=== PATIENT | male | born 1955 | race Caucasian/White ===

== ENCOUNTER 2021-03-11 13:37 | Outpatient (REF) | payer BC, SELFPAY ==
--- NOTE | ~2021-03-11 | XR_ITS ---
EXAMINATION: XR THORACIC SPINE CLINICAL INFORMATION: Pain COMPARISON: None TECHNIQUE: 3 views of the thoracic spine were obtained. XR/XR thoracic spine 3V FINDINGS/IMPRESSION: No acute fracture or dislocation. Vertebral body heights maintained. Bulky endplate osteophytes present throughout the thoracic spine. Paraspinal soft tissues unremarkable.
== END 2021-03-11 13:38 | disposition home or self-care (01) ==
LOC: HO.HMGCX 13:37
PROVIDERS: PCP Internal Medicine; Visit Provider Internal Medicine
DX: M54.9 Dorsalgia, unspecified (principal)
CPT/HCPCS: 72072

== ENCOUNTER 2021-03-12 06:07 | Outpatient (REF) | payer BC, SELFPAY ==
[2021-03-12 11:34] LABS: Appearance Urine TURBID; Color Urine YELLOW; Glucose Urine UA 100 MG/DL (NEG); Leukocyte Esterase Urine NEG (NEG); Nitrite Urine NEG (NEG); Specific Gravity - Urine 1.025 (1.005-1.025); Urine Blood TRACE (NEG); Urine Ketones NEG (NEG); Urine Protein NEG (NEG-TRACE)
[2021-03-12 11:55] LABS: Amorphous Sediment Urine 3+ /LPF; RBC Urine 0-2 /HPF (0); Squamous Epithelial Cell Urine 1+ /LPF; WBC Urine 0 /HPF (0-4)
[2021-03-12 11:57] LABS: Creatinine Urine 174.91 mg/dL; Microalbum/Creatinine Ratio Ur 29.1 ug/mg cr
[2021-03-12 12:04] LABS: Estimated Average Glucose 278 mg/dL; Hemoglobin A1c % 11.3 %
[2021-03-12 12:16] LABS: Prostate Specific Antigen Scr 0.08 ng/mL (<0.05-4.0)
[2021-03-12 12:24] LABS: Alanine Aminotransferase 14 U/L (0-40); Albumin Level 4.1 g/dL (3.5-5.0); Alkaline Phosphatase 79 U/L (39-117); Anion Gap 13 (12-20); Aspartate Amino Transferase 10 U/L (5-37); Bilirubin Total 0.6 mg/dL (0.0-1.0); Blood Urea Nitrogen 14 mg/dL (9-16); Calcium 9.6 mg/dL (8.4-10.2); Carbon Dioxide 27 mmol/L (22-29); Chloride 103 mmol/L (96-108); Cholesterol 243 mg/dL; Estimated Glomerular Filt Rate > 60; Glucose Fasting 275 mg/dL (60-99); HDL Cholesterol 42 mg/dL; LDL Cholesterol Calculated 168 mg/dl; Potassium 4.4 mmol/L (3.3-5.1); Sodium 139 mmol/L (135-145); Total Protein 6.8 g/dL (6.5-8.0); Triglycerides 169 mg/dL
[2021-03-18 10:51] LABS: Prolactin 330.4 ng/mL (2.0-18.0)
== END 2021-03-12 06:08 | disposition home or self-care (01) ==
LOC: HO.HMGCLDS 06:07
PROVIDERS: Visit Provider Internal Medicine
DX: Z00.00 Encounter for general adult medical examination without abnormal findings (principal); Z12.5 Encounter for screening for malignant neoplasm of prostate; M54.9 Dorsalgia, unspecified; R73.9 Hyperglycemia, unspecified
CPT/HCPCS: 36415; 80053; 80061; 81001; 82043; 83036; 84146; 84153

== ENCOUNTER 2021-03-20 07:33 | Outpatient (RCR) | payer BC, SELFPAY ==
--- NOTE | 2021-03-20 14:22 | MHC.PT.EP ---
[facility] [place] Office [place] Office [place] Office [address] Shanthi Dasilva [address] [phone] F: [phone] F: [phone] F: [phone] F: [phone] Physical Therapy Plan of Care Date of Evaluation: Date of Surgery: n/a Diagnosis: dorsalgia Assessment: Patient is a 66 year old R handed male who presents with s/s consistent with pain dorsalgia. 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 Patient past medical history includes diabetes and obesity. Current impairments include pain, posture, ROM, strength, activity tolerance and functional mobility. Functional limitations include decreased ability to lift, carry, push, pull, sleep, transfer, and work. Patient is motivated with good rehab potential. Skilled PT will address impairments and functional limitations in order to achieve goals. 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 Manual therapy to restore motion and function. Therapeutic exercise to improve strength and flexibility. Neuromuscular re-education for posture and balance. Therapeutic activities to return to functional activities of daily living. Electronically signed by: Ulices Alcaraz, PT Please sign and return to therapist. Thank you for your referral.
--- NOTE | 2021-11-13 08:32 | MHC.PT.DC ---
[facility] [place] Office [place] Office [place] Office [address] Celia Dasilva 140 [facility] [phone] F: [phone] F: [phone] F: [phone] F: [phone] Physical Therapy Discharge Report Diagnosis: dorsalgia Date of Surgery: n/a Date of Evaluation: 03/20/21 Date of Discharge: 04/04/21 Treatments to Date: 1 Cancellations to Date: No Shows to Date: Discharge Status: Patient Elected to Stop Discharge Summary: Pt did not return after Evaluation. Patient is a 66 year old R handed male who presents with s/s consistent with pain dorsalgia. 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 Patient past medical history includes diabetes and obesity. Current impairments include pain, posture, ROM, strength, activity tolerance and functional mobility. Functional limitations include decreased ability to lift, carry, push, pull, sleep, transfer, and work. Patient is motivated with good rehab potential. Skilled PT will address impairments and functional limitations in order to achieve goals. Electronically signed by: Ulices Alcaraz, PT Please sign and return to therapist. Thank you for your referral.
== END 2021-11-13 08:33 | disposition home or self-care (01) ==
LOC: HO.PTCHIC 07:33
PROVIDERS: PCP Internal Medicine; Visit Provider Internal Medicine
DX: M54.9 Dorsalgia, unspecified (principal)
CPT/HCPCS: 97110; 97161

== ENCOUNTER 2021-03-21 14:06 | Outpatient (REF) | payer BC, SELFPAY ==
[2021-03-21 16:28] LABS: Appearance Urine CLEAR; Color Urine YELLOW; Glucose Urine UA NEG (NEG); Leukocyte Esterase Urine NEG (NEG); Nitrite Urine NEG (NEG); PH 5.5 (5.0-8.0); Specific Gravity - Urine >= 1.030 (1.005-1.025); Urine Blood NEG (NEG); Urine Ketones NEG (NEG); Urine Protein NEG (NEG-TRACE)
[2021-03-21 16:37] LABS: Bacteria Urine TRACE /LPF; RBC Urine 0 /HPF (0); Squamous Epithelial Cell Urine 1+ /LPF; WBC Urine 0 /HPF (0-4)
[2021-03-21 16:59] LABS: TSH reflex Free T4 2.08 uIU/mL (0.32-4.0)
== END 2021-03-21 14:07 | disposition home or self-care (01) ==
LOC: HO.HMGCLDS 14:06
PROVIDERS: PCP Internal Medicine; Visit Provider Internal Medicine
DX: Z00.00 Encounter for general adult medical examination without abnormal findings (principal); M54.9 Dorsalgia, unspecified; R79.89 Other specified abnormal findings of blood chemistry; E11.65 Type 2 diabetes mellitus with hyperglycemia
CPT/HCPCS: 36415; 81001; 84443

== ENCOUNTER 2021-03-25 13:51 | Outpatient (REF) | payer MEDICARE, SELFPAY ==
--- NOTE | ~2021-03-25 | MM_ITS ---
EXAMINATION: MM DIAGNOSTIC DIGITAL BREAST TOMOSYNTHESIS, BILATERAL US DIAGNOSTIC ULTRASOUND BREAST, BILATERAL CLINICAL INFORMATION: 66-year-old male with asymmetric breast enlargement greater on right at routine clinical exam. Palpable fullness on right. No discharge. No prior breast imaging. COMPARISON: None (current study represents initial baseline exam). TECHNIQUE: Digital breast tomosynthesis is performed in both the craniocaudal and mediolateral oblique views along with computer-aided detection (CAD). Synthesized 2D images are generated from the tomosynthesis. Ultrasound of both breasts is performed including all 4 quadrants and retroareolar region. Grayscale imaging and color Doppler are performed without and with harmonics. FINDINGS: Mammography: The breasts are heterogeneously dense, which may obscure small masses (ACR BI-RADS breast composition Category c). There is global asymmetry of the breasts, the right is larger. Multiple oval and rounded asymmetries are seen on both sides, the right side asymmetries are larger and slightly higher attenuation. There is no architectural abnormality. The bilateral MLO tomography shows fine uniform stromal pseudo encapsulation around the tissue, likely compressed stroma rather than encapsulation of bilateral global hamartomas. There are diffuse bilateral benign round and rim calcifications scattered throughout both breasts. There is no adenopathy. The skin contours are smooth. Ultrasound: Ultrasound of both breasts have similar sonographic pattern. There is no isolated sonographically lesion different from the remainder of each breast. No focal architectural abnormality. No focal mass with internal color flow to target for tissue sampling. No skin thickening or edema tracking in soft tissue planes. Management: Findings discussed with patient at time of imaging. Patient notes chronic enlarged asymmetric breast, right larger for several decades. He does not note any palpable changes in the breasts. There is no discharge. No prior history of anterior chest wall trauma. MM/MM tomosynthesis diagnostic BI IMPRESSION: -Unusual mammographic pattern, possibly prominent asymmetric bilateral gynecomastia. Bilateral hamartoma less likely. -Ultrasound appearance is bilaterally similar. No focal abnormality to assist in targeting for focal tissue sampling. ASSESSMENT: BI-RADS 3: Probably Benign RECOMMENDATION: Patient should be managed based on the clinical impression and clinical follow-up as warranted. If clinically indicated, further evaluation may be considered with surgical consult. Decision to proceed with biopsy should be based on clinical grounds and degree of clinical concern.
== END 2021-03-25 13:52 | disposition home or self-care (01) ==
LOC: HO.MAMMO 13:51
PROVIDERS: PCP Internal Medicine; Visit Provider Internal Medicine
DX: N63.25 Unspecified lump in the left breast, overlapping quadrants (principal); N63.15 Unspecified lump in the right breast, overlapping quadrants
CPT/HCPCS: 76642; 77062; 77066

== ENCOUNTER 2021-04-15 14:44 | Outpatient (REF) | payer BC, SELFPAY ==
--- NOTE | ~2021-04-15 | MR_ITS ---
EXAMINATION: MR BRAIN WITHOUT AND WITH CONTRAST CLINICAL INFORMATION: Evaluate prolactinoma. COMPARISON: There are no prior studies available for comparison at time of dictation. TECHNIQUE: Multiplanar, multisequence MRI of the brain was obtained before and after the intravenous administration of 5 mL Gadavist. FINDINGS: There is a relatively well-defined heterogeneously enhancing mass in the central and right aspect of the anterior lobe of the pituitary gland which measures 1.3 x 1.2 x 0.9 cm in oblique AP, transverse and craniocaudal dimensions. The superior aspect of the right lobe is convex. The infundibulum is displaced toward the left. There is no impingement on the optic chiasm. The lesion extends between loops of the right cavernous internal carotid arteries, but the vessels are patent and there is normal enhancement of the cavernous sinuses. No diffusion abnormalities are identified to suggest an acute or subacute infarct. There is mild commensurate prominence of the ventricles and sulci consistent with diffuse volume loss. There is a moderate cavum septum pellucidum and vergae. No mass effect or midline shift is seen. There are scattered foci of hyperintense T2 and FLAIR signal in the periventricular and subcortical white matter, most consistent with chronic microvascular ischemic changes. No extra-axial fluid collections are noted. The brainstem and cerebellum are normal. On postcontrast imaging, there is no abnormal parenchymal or leptomeningeal enhancement. The craniovertebral junction, marrow signal, and midline structures are normal. There is a proteinaceous Tornwaldt cyst in the superior nasopharynx posteriorly. The mastoid air cells and paranasal sinuses are well-aerated. MR/MR head/brain wo/w con IMPRESSION: 1. There is well-defined heterogenous the enhancing mass in the central right aspect of the anterior lobe of the pituitary gland, consistent with pituitary adenoma. No prior studies available for comparison. If they become available, comparison can be made to assess for any interval changes. The lesion extends between loops of the cavernous internal carotid artery on the right, but the vascular flow voids are maintained. 2. There are no acute bleeds or infarcts. There are no other masses or areas of abnormal enhancement.
--- NOTE | ~2021-04-15 | XR_ITS ---
EXAMINATION: PRE-MRI ORBITS CLINICAL INFORMATION: Rule out metal devise COMPARISON: None TECHNIQUE: 3 views FINDINGS: There is no radiopaque metallic foreign body seen in the orbits. There are several dental fillings visualized. The paranasal and mastoid cells are well-aerated. The maxillofacial and nasal bones are intact. XR/XR pre mri screening IMPRESSION: No radiopaque metallic foreign body seen in the orbits.
== END 2021-04-15 14:45 | disposition home or self-care (01) ==
LOC: HO.MRI 14:44
PROVIDERS: Visit Provider Internal Medicine
DX: D35.2 Benign neoplasm of pituitary gland (principal)
CPT/HCPCS: 70553; A9585

== ENCOUNTER → 2021-06-24 13:49 | Outpatient (BNVA) | payer BC, SELFPAY | PROVIDERS: PCP Internal Medicine; Visit Provider Internal Medicine Endocrinology, Diabetes & Metabolism | DX: Z13.89 Encounter for screening for other disorder (principal) ==

== ENCOUNTER 2021-06-25 06:56 | Outpatient (REF) | payer BC, SELFPAY ==
[2021-06-25 11:37] LABS: Estimated Average Glucose 154 mg/dL
[2021-06-25 11:46] LABS: Creatinine Urine 114.82 mg/dL; Microalbum/Creatinine Ratio Ur 8.7 ug/mg cr
[2021-06-25 11:53] LABS: Free T4 (Free Thyroxine) 1.12 ng/dL (0.71-1.85)
[2021-06-25 11:56] LABS: Alanine Aminotransferase 13 U/L (0-40); Albumin Level 4.5 g/dL (3.5-5.0); Alkaline Phosphatase 69 U/L (39-117); Anion Gap 14 (12-20); Aspartate Amino Transferase 11 U/L (5-37); Bilirubin Total 0.5 mg/dL (0.0-1.0); Blood Urea Nitrogen 21 mg/dL (9-16); Calcium 9.9 mg/dL (8.4-10.2); Carbon Dioxide 25 mmol/L (22-29); Chloride 103 mmol/L (96-108); Cholesterol 175 mg/dL; Estimated Glomerular Filt Rate > 60; Glucose Fasting 158 mg/dL (60-99); HDL Cholesterol 50 mg/dL; LDL Cholesterol Calculated 109 mg/dl; Potassium 4.6 mmol/L (3.3-5.1); Sodium 137 mmol/L (135-145); Thyroid Stimulating Hormone 2.75 uIU/mL (0.32-4.0); Total Protein 7.2 g/dL (6.5-8.0); Triglycerides 83 mg/dL
[2021-06-25 11:59] LABS: Cortisol Random 13.1 ug/dL
[2021-06-27 05:40] LABS: Follicle Stimulating Hormone <0.7 mIU/mL (1.6-8.0); Lutenizing Hormone <0.2 mIU/mL (1.6-15.2)
[2021-06-30 16:12] LABS: IGF-1 (Somatomedin C) 84 ng/mL (41-279); IGF-1 Z Score (Male) -0.7 SD (-2.0 - +2.0)
[2021-07-01 18:12] LABS: Testosterone, Free 3.1 pg/mL (35.0-155.0); Testosterone, Total 36 ng/dL (250-1100)
== END 2021-06-25 06:57 | disposition home or self-care (01) ==
LOC: HO.HMGCLDS 06:56
PROVIDERS: PCP Internal Medicine; Visit Provider Internal Medicine Endocrinology, Diabetes & Metabolism
DX: D35.2 Benign neoplasm of pituitary gland (principal); E11.9 Type 2 diabetes mellitus without complications; E78.5 Hyperlipidemia, unspecified
CPT/HCPCS: 36415; 80053; 80061; 82043; 82533; 83001; 83002; 83036; 84305; 84402; 84403; 84439; 84443

== ENCOUNTER 2021-06-30 08:14 | Outpatient (REF) | payer BC, SELFPAY ==
[2021-06-30 11:58] LABS: Creatinine, mg/dL 93.05
[2021-06-30 13:13] LABS: Creatinine, 24Hr Urine 1.5 G/Day (1.0-2.0); Total Volume 24 Hour Urine 1600 mL
[2021-07-04 21:56] LABS: Cortisol Free, 24 Hr Urine 32.1 mcg/24 h (4.0-50.0); Creatinine, 24 Hr Urine 1.45 g/24 h (0.50-2.15); Total Volume, 24 Hr Urine 1600 mL
== END 2021-06-30 08:15 | disposition home or self-care (01) ==
LOC: HO.HMGCLNP 08:14
PROVIDERS: Visit Provider Internal Medicine Endocrinology, Diabetes & Metabolism
DX: D35.2 Benign neoplasm of pituitary gland (principal)
CPT/HCPCS: 82530; 82570

== ENCOUNTER 2021-10-24 06:14 | Outpatient (REF) | payer BC, SELFPAY ==
[2021-10-24 11:52] LABS: Alanine Aminotransferase 16 U/L (0-40); Albumin Level 4.1 g/dL (3.5-5.0); Alkaline Phosphatase 64 U/L (39-117); Aspartate Amino Transferase 12 U/L (5-37); Bilirubin Direct < 0.2 mg/dL (0.0-0.5); Bilirubin Total 0.4 mg/dL (0.0-1.0); Total Protein 6.6 g/dL (6.5-8.0)
[2021-10-26 10:07] LABS: Prolactin 62.8 ng/mL (2.0-18.0)
== END 2021-10-24 06:15 | disposition home or self-care (01) ==
LOC: HO.HMGCLDS 06:14
PROVIDERS: PCP Internal Medicine; Visit Provider Internal Medicine Endocrinology, Diabetes & Metabolism
DX: D35.2 Benign neoplasm of pituitary gland (principal)
CPT/HCPCS: 36415; 80076; 84146

== ENCOUNTER 2021-12-29 13:56 | Outpatient (REF) | payer BC, SELFPAY ==
--- NOTE | ~2021-12-29 | XR_ITS ---
EXAMINATION: PRE-MRI ORBIT CLINICAL INFORMATION: Screening for MRI COMPARISON: 04/15/2021 TECHNIQUE: 3 views FINDINGS: No radiopaque foreign body overlying the orbits. Visualized paranasal sinuses clear. Nasal septum midline. No fracture or destructive process. XR/XR pre mri screening IMPRESSION: Unremarkable exam. No radiopaque metallic foreign body seen overlying or within the orbits.
--- NOTE | ~2021-12-29 | MR_ITS ---
EXAMINATION: MR BRAIN WITHOUT AND WITH CONTRAST CLINICAL INFORMATION: Prolactinoma follow-up. COMPARISON: Brain MRI 04/15/2021. TECHNIQUE: Multiplanar MR imaging of the brain was performed without and with contrast. A total of 5 mL Gadavist was utilized for this examination. FINDINGS: Again there is a heterogeneously enhancing intrasellar mass located along the right lateral aspect of the sella turcica causing expansion and remodeling of the floor the sella turcica, right cavernous sinus invasion, and leftward displacement of the pituitary stalk. The overall height of the mass measures 1.1 cm and the superior surface of the pituitary gland has a subtle upward convex curvature. No suprasellar mass effect and no overt chiasmatic compression. Cavernous internal carotid artery flow voids are maintained. Postcontrast images reveal no abnormal intracranial mass or enhancement. There is no intracranial mass effect or midline shift. Lateral and third ventricles are normal. No hydrocephalus. Midline structures including the cervicomedullary junction are normal. No acute bone marrow signal changes. There is no acute territorial infarct. Intracranial vascular flow voids are grossly maintained. There is no mastoid or middle ear effusion. Mild paranasal sinus mucosal thickening within ethmoid air cells. MR/MR head/brain wo/w con IMPRESSION: Stable examination. 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
== END 2021-12-29 13:57 | disposition home or self-care (01) ==
LOC: HO.MRI 13:56
PROVIDERS: Visit Provider Internal Medicine Endocrinology, Diabetes & Metabolism
DX: D35.2 Benign neoplasm of pituitary gland (principal)
CPT/HCPCS: 70553; A9585

== ENCOUNTER 2022-01-08 06:07 | Outpatient (REF) | payer BC, SELFPAY ==
[2022-01-08 11:37] LABS: Alanine Aminotransferase 18 U/L (0-40); Albumin Level 4.4 g/dL (3.5-5.0); Alkaline Phosphatase 71 U/L (39-117); Aspartate Amino Transferase 13 U/L (5-37); Bilirubin Direct 0.2 mg/dL (0.0-0.5); Bilirubin Total 0.5 mg/dL (0.0-1.0)
[2022-01-10 09:26] LABS: Prolactin 39.1 ng/mL (2.0-18.0)
[2022-01-20 20:27] LABS: Testosterone, Free 4.7 pg/mL (35.0-155.0); Testosterone, Total 61 ng/dL (250-1100)
== END 2022-01-08 06:08 | disposition home or self-care (01) ==
LOC: HO.HMGCLDS 06:07
PROVIDERS: PCP Internal Medicine; Visit Provider Internal Medicine Endocrinology, Diabetes & Metabolism
DX: D35.2 Benign neoplasm of pituitary gland (principal)
CPT/HCPCS: 36415; 80076; 84146; 84402; 84403

== ENCOUNTER 2022-02-26 12:21 | Outpatient (REF) | payer BC, SELFPAY ==
[2022-02-26 14:22] LABS: Alanine Aminotransferase 16 U/L (0-40); Albumin Level 4.2 g/dL (3.5-5.0); Alkaline Phosphatase 67 U/L (39-117); Aspartate Amino Transferase 13 U/L (5-37); Bilirubin Direct < 0.2 mg/dL (0.0-0.5); Bilirubin Total 0.3 mg/dL (0.0-1.0); Total Protein 6.8 g/dL (6.5-8.0)
[2022-02-27 17:13] LABS: Prolactin 25.9 ng/mL (2.0-18.0)
== END 2022-02-26 12:22 | disposition home or self-care (01) ==
LOC: HO.HMGCLDS 12:21
PROVIDERS: PCP Internal Medicine; Visit Provider Internal Medicine Endocrinology, Diabetes & Metabolism
DX: D35.2 Benign neoplasm of pituitary gland (principal)
CPT/HCPCS: 36415; 80076; 84146

== ENCOUNTER 2022-03-16 06:02 | Outpatient (REF) | payer BC, SELFPAY ==
[2022-03-16 11:37] LABS: MANUAL DIFF FLAG NO
[2022-03-16 11:55] LABS: Basophils Percent Auto 0.4 % (0-2); Eosinophils Absolute Auto 0.3 X10*3/uL (0.0-0.4); Eosinophils Percent Auto 2.8 % (0-4); Hemoglobin 13.9 g/dl (14.0-18.0); Imm Gran Abs Auto 0.04 X10*3/uL (0.00-0.03); Imm Gran Pct Auto 0.4 % (0.0-0.4); Lymphocytes Absolute Auto 2.8 X10*3/uL (1.2-4.9); Lymphocytes Percent Auto 29.1 % (20-40); Mean Corpuscular HGB Conc 33.1 g/dl (31.0-36.0); Mean Corpuscular Hemoglobin 28.4 pg (27.0-33.0); Mean Corpuscular Volume 85.9 fL (80.0-98.0); Mean Platelet Volume 11.1 fL (9.4-12.4); Monocytes Absolute Auto 0.8 X10*3/uL (0.1-1.2); Monocytes Percent Auto 8.3 % (2-11); Neutrophils Absolute Auto 5.7 x10*3/uL (2.0-8.3); Platelet Count 262 X10*3/uL (160-400); Red Blood Count 4.89 X10*6/uL (4.60-5.80); Red Cell Distribution Width 13.2 % (11.0-16.0); White Blood Count 9.6 X10*3/uL (4.8-10.8)
[2022-03-16 12:53] LABS: Estimated Average Glucose 146 mg/dL; Hemoglobin A1c % 6.7 %
[2022-03-16 14:00] LABS: Alanine Aminotransferase 14 U/L (0-40); Albumin Level 4.1 g/dL (3.5-5.0); Alkaline Phosphatase 75 U/L (39-117); Anion Gap 13 (12-20); Aspartate Amino Transferase 13 U/L (5-37); Bilirubin Total 0.4 mg/dL (0.0-1.0); Blood Urea Nitrogen 18 mg/dL (9-16); Calcium 9.6 mg/dL (8.4-10.2); Carbon Dioxide 28 mmol/L (22-29); Chloride 104 mmol/L (96-108); Cholesterol 186 mg/dL; Estimated Glomerular Filt Rate > 60; Glucose Fasting 152 mg/dL (60-99); HDL Cholesterol 48 mg/dL; LDL Cholesterol Calculated 116 mg/dl; Potassium 4.6 mmol/L (3.3-5.1); Sodium 140 mmol/L (135-145); Total Protein 6.6 g/dL (6.5-8.0); Triglycerides 110 mg/dL
== END 2022-03-16 06:03 | disposition home or self-care (01) ==
LOC: HO.HMGCLDS 06:02
PROVIDERS: Absent Provider Internal Medicine Endocrinology, Diabetes & Metabolism; PCP Internal Medicine; Visit Provider Internal Medicine
DX: Z00.00 Encounter for general adult medical examination without abnormal findings (principal); Z12.5 Encounter for screening for malignant neoplasm of prostate; E78.5 Hyperlipidemia, unspecified; E11.65 Type 2 diabetes mellitus with hyperglycemia
CPT/HCPCS: 36415; 80053; 80061; 83036; 84153; 85025

== ENCOUNTER 2022-03-19 15:19 | Outpatient (REF) | payer BC, SELFPAY ==
--- NOTE | ~2022-03-19 | XR_ITS ---
EXAMINATION: XR KNEE AP STANDING, BILATERAL CLINICAL INFORMATION: Pain. COMPARISON: None TECHNIQUE: AP bilateral standing and lateral views of the knees was obtained. FINDINGS: RIGHT KNEE: Bony mineralization is normal. The lateral joint space compartment is well-maintained. There is moderately severe narrowing of the medial and patellofemoral joint space compartments. There is tricompartment peripheral osteophyte formation. There is a mild varus configuration. No fracture or dislocation is seen. There is a small joint effusion. No foreign body is noted. There are atherosclerotic calcifications. XR/XR knee standing BI IMPRESSION: 1. There is tricompartment osteoarthritic change of the right knee, most pronounced in the medial and patellofemoral joint space compartments, where it is moderately severe. 2. There is a mild varus configuration. 3. There is a small joint effusion. LEFT KNEE: Bony mineralization is normal. The lateral joint space compartment is well-maintained. There is moderately severe narrowing of the medial and patellofemoral joint space compartments. There is tricompartment peripheral osteophyte formation. No fracture or dislocation is seen. There is no significant joint effusion. No foreign body is noted. There are atherosclerotic calcifications. IMPRESSION: 1. There is tricompartment osteoarthritic change of the right knee, most pronounced of the medial and patellofemoral joint space compartments, where it is moderately severe. 2. There is a mild varus configuration.
== END 2022-03-19 15:20 | disposition home or self-care (01) ==
LOC: HO.HMGCX 15:19
PROVIDERS: PCP Internal Medicine; Visit Provider Internal Medicine
DX: M25.562 Pain in left knee (principal); M25.561 Pain in right knee
CPT/HCPCS: 73565

== ENCOUNTER 2022-03-25 06:05 | Outpatient (REF) | payer BC, SELFPAY ==
[2022-03-26 22:13] LABS: Prolactin 25.7 ng/mL (2.0-18.0)
== END 2022-03-25 06:06 | disposition home or self-care (01) ==
LOC: HO.HMGCLDS 06:05
PROVIDERS: PCP Internal Medicine; Visit Provider Internal Medicine Endocrinology, Diabetes & Metabolism
DX: D35.2 Benign neoplasm of pituitary gland (principal)
CPT/HCPCS: 36415; 84146

== ENCOUNTER 2022-06-29 06:07 | Outpatient (REF) | payer BC, SELFPAY ==
[2022-06-29 12:14] LABS: Alanine Aminotransferase 25 U/L (0-40); Albumin Level 4.1 g/dL (3.5-5.0); Alkaline Phosphatase 68 U/L (39-117); Aspartate Amino Transferase 14 U/L (5-37); Bilirubin Direct 0.1 mg/dL (0.0-0.5); Bilirubin Total 0.4 mg/dL (0.0-1.0); Total Protein 6.4 g/dL (6.5-8.0)
[2022-07-01 00:53] LABS: Prolactin 9.4 ng/mL (2.0-18.0)
== END 2022-06-29 06:08 | disposition home or self-care (01) ==
LOC: HO.HMGCLDS 06:07
PROVIDERS: PCP Internal Medicine; Visit Provider Internal Medicine Endocrinology, Diabetes & Metabolism
DX: D35.2 Benign neoplasm of pituitary gland (principal)
CPT/HCPCS: 36415; 80076; 84146

== ENCOUNTER → 2022-07-02 08:36 | Outpatient (BNVA) | payer BC, SELFPAY | PROVIDERS: PCP Internal Medicine; Visit Provider Internal Medicine Endocrinology, Diabetes & Metabolism ==

== ENCOUNTER 2022-09-07 11:49 | Outpatient (AMB) | payer BC, SELFPAY ==
--- NOTE | 2022-09-07 12:07 | A.OFFPC_ITS ---
Vital Signs 09/07/22 12:09 Height 5 ft 10 in Weight 280 lb BMI 40.2 BP 130/74 Blood Pressure Location Rt brachial Position Sitting Pulse 50 Pulse Source Pulse Oximeter Pulse Oximetry (%) 96 Oxygen Delivery Method Room Air Intake Visit Reasons: 6 month f/u DM Intake Note: pt is here to follow up on his DM Allergies gabapentin Adverse Reaction (Intermediate, Verified 09/07/22 12:12) Agitated Tobacco use date assessed: 09/07/22 Fall risk assessment: No Falls in past year Last assessed Fall Risk: 09/07/22 Dental Screening Dental Screen Date: 09/07/22 Did you have a dental visit in the last 12 months?: No Did you have a dental problem in the last 6 months where you did not have access to dental care?: No Was dental information given to patient?: Patient has dentist [facility] Medical History (Updated 03/18/22 @ 13:02 by Tawny Rodas MD) Annual physical exam Anxiety Back pain DM type 2 (diabetes mellitus, type 2) Hyperglycemia Hyperlipidemia Left breast lump Lump of right breast Overweight Pathologic high serum prolactin Prolactinoma Tobacco dependence Surgical History Hx of tooth extraction Family History Father Diabetes Hypertension Mother Hypertension Breast cancer Maternal Uncle Lung cancer Sister Mental health disorder Diabetes Social History Housing: House Alcohol intake: current Alcohol intake frequency: a few times a week Alcohol type: beer Patient Tobacco Use Status: Current everyday Tobacco user Tobacco use type: Cigarette Cigarettes Per Day: 20 e-Cigarette/Vaping Use: Never Used Current occupational status: employed Cognitive needs: No Hearing needs: No Vision needs: No Questionnaire Thrive Questionnaire Date Thrive assessed: 03/18/22 ALCIRA-7 AMB Questionnaire ALCIRA-7 Date ALCIRA - 7 assessed: 03/18/22 Source: Developed by Drs. Kevin Hutchins, Antonia Woodall, Miguel Angel Phelps and colleagues, with an educational wili from [employer]. Physical exam (Primary Care) Vital Signs: Last Vital Signs Pulse 50 09/07/22 12:09 BP 130/74 09/07/22 12:09 Pulse Ox 96 09/07/22 12:09 Oxygen Delivery Method Room Air 09/07/22 12:09 BMI result Body Mass Index 40.2 Tobacco/Smoking Status: Tobacco use Status Tobacco use date assessed 09/07/22 09/07/22 12:15 Patient Tobacco Use Status Current everyday Tobacco 09/07/22 12:07 Tobacco use type Cigarette 09/07/22 12:07 e-Cigarette/Vaping Use Never Used 09/07/22 12:07 Thrive Assessment: Date of Thrive Assessment Date Thrive assessed 03/18/22 09/07/22 12:07 Results AMB Hemoglobin A1c AMB Hemoglobin A1c 6.5 % Last Edit by Becky Cervantes CMA on 09/07/22 12: 29 Results Reviewed Results Reviewed: Laboratory Last Values Hgb A1c (Clinic) 6.5 % (4.0-6.0) H 09/07/22 12:28 Assessment and Plan Assessment & Plan Orders: Orders AMB Hemoglobin A1c Today E11.9 - Type 2 diabetes mellitus without complications Coding Diagnoses
[2022-09-07 12:09] VITALS: BP 130/74; PULSE 50; O2SAT 96; BMI 40.2
== END 2022-09-07 13:25 | disposition left against medical advice (07) ==
PROVIDERS: Visit Provider Internal Medicine
DX: E11.9 Type 2 diabetes mellitus without complications (principal)
CPT/HCPCS: 83036

== ENCOUNTER 2022-09-29 08:07 | Outpatient (REF) | payer BC, SELFPAY ==
--- NOTE | ~2022-09-29 | MR_ITS ---
EXAMINATION: MR BRAIN WITHOUT AND WITH CONTRAST CLINICAL INFORMATION: Pituitary macroadenoma, on Cabergoline COMPARISON: MRI of the brain with and without contrast 12/29/2021 TECHNIQUE: Multiplanar multisequence MR imaging of the brain was obtained without and following the administration of 5 mL Gadavist intravenous contrast. FINDINGS: Stable size of a hypoenhancing mass involving the right aspect of the pituitary gland measuring up to 1.1 cm in craniocaudal extent with possible invasion of the right cavernous sinus. Unchanged slight leftward deviation of the pituitary infundibulum. There is mild superior convexity of the right aspect of the gland without suprasellar mass effect. Normal position of the optic chiasm. There is no acute infarct on diffusion-weighted imaging. No extra-axial collection or mass effect/herniation. Scattered periventricular and deep white matter T2 FLAIR hyperintensities consistent with mild underlying microangiopathy. No hydrocephalus. The ventricles are normal in morphology and size. Cavum septum pellucidum et vergae No abnormal parenchymal or extra-axial enhancement. The major flow voids at the skull base are preserved. The midline structures are normal. The cerebellar tonsils are normally positioned. The craniocervical junction is normal. Marrow signal is within normal limits. The visualized soft tissues are without significant abnormality. No signal abnormality within the paranasal sinuses or within the mastoid air cells. MR/MR head/brain wo/w con IMPRESSION: Stable size and appearance of a presumed macroadenoma involving the right aspect of the pituitary gland with possible invasion of the right cavernous sinus. No suprasellar mass effect.
--- NOTE | ~2022-09-29 | XR_ITS ---
Clinical History: pre-MRI screening. Roland and lateral views of the orbits were obtained. The bony orbits are intact. No radiopaque foreign body is seen. The paranasal sinuses are clear. No other osseous abnormalities are identified. XR/XR pre mri screening Impression: Unremarkable orbits. No radiopaque foreign body seen.
== END 2022-09-29 08:08 | disposition home or self-care (01) ==
LOC: HO.MRI 08:07
PROVIDERS: PCP Internal Medicine; Visit Provider Internal Medicine Endocrinology, Diabetes & Metabolism
DX: D35.2 Benign neoplasm of pituitary gland (principal)
CPT/HCPCS: 70553; A9585

== ENCOUNTER 2022-10-21 06:21 | Outpatient (REF) | payer BC, SELFPAY ==
[2022-10-21 11:43] LABS: MANUAL DIFF FLAG NO
[2022-10-21 11:50] LABS: Basophils Absolute Auto 0.1 X10*3/uL (0.0-0.2); Basophils Percent Auto 0.4 % (0-2); Eosinophils Absolute Auto 0.4 X10*3/uL (0.0-0.4); Eosinophils Percent Auto 3.6 % (0-4); Hematocrit 39.9 % (42.0-52.0); Hemoglobin 12.9 g/dl (14.0-18.0); Imm Gran Abs Auto 0.05 X10*3/uL (0.00-0.03); Imm Gran Pct Auto 0.4 % (0.0-0.4); Lymphocytes Absolute Auto 3.2 X10*3/uL (1.2-4.9); Lymphocytes Percent Auto 28.3 % (20-40); Mean Corpuscular HGB Conc 32.3 g/dl (31.0-36.0); Mean Corpuscular Hemoglobin 28.5 pg (27.0-33.0); Mean Corpuscular Volume 88.3 fL (80.0-98.0); Monocytes Absolute Auto 0.9 X10*3/uL (0.1-1.2); Monocytes Percent Auto 8.2 % (2-11); Neutrophils Absolute Auto 6.6 x10*3/uL (2.0-8.3); Neutrophils Percent Auto 59.1 % (45-73); Platelet Count 262 X10*3/uL (160-400); Red Blood Count 4.52 X10*6/uL (4.60-5.80); Red Cell Distribution Width 13.5 % (11.0-16.0); White Blood Count 11.2 X10*3/uL (4.8-10.8)
[2022-10-21 11:59] LABS: Estimated Average Glucose 134 mg/dL; Hemoglobin A1c % 6.3 % (<6.0)
[2022-10-21 12:19] LABS: Alanine Aminotransferase 18 U/L (0-40); Albumin Level 4.2 g/dL (3.5-5.0); Alkaline Phosphatase 68 U/L (39-117); Anion Gap 14 (12-20); Aspartate Amino Transferase 15 U/L (5-37); Bilirubin Direct 0.1 mg/dL (0.0-0.5); Bilirubin Total 0.3 mg/dL (0.0-1.0); Blood Urea Nitrogen 25 mg/dL (9-16); Calcium 9.8 mg/dL (8.4-10.2); Carbon Dioxide 25 mmol/L (22-29); Chloride 107 mmol/L (96-108); Cholesterol 176 mg/dL (<200); Estimated Glomerular Filt Rate > 60; Glucose Fasting 126 mg/dL (60-99); HDL Cholesterol 46 mg/dL (>40); LDL Cholesterol Calculated 102 mg/dL (<100); Potassium 4.4 mmol/L (3.3-5.1); Sodium 142 mmol/L (135-145); Triglycerides 142 mg/dL (<150)
[2022-10-21 12:29] LABS: Creatinine Urine 102.73 mg/dL; Microalbum/Creatinine Ratio Ur 10.7 ug/mg cr (<30)
[2022-10-22 09:09] LABS: Prolactin 8.7 ng/mL (2.0-18.0)
[2022-10-27 16:09] LABS: Testosterone, Free 6.2 pg/mL (35.0-155.0); Testosterone, Total 70 ng/dL (250-1100)
== END 2022-10-21 06:22 | disposition home or self-care (01) ==
LOC: HO.HMGCLDS 06:21
PROVIDERS: Absent Provider Internal Medicine Endocrinology, Diabetes & Metabolism; PCP Internal Medicine; Visit Provider Internal Medicine
DX: Z00.00 Encounter for general adult medical examination without abnormal findings (principal); E11.9 Type 2 diabetes mellitus without complications; D35.2 Benign neoplasm of pituitary gland; E78.5 Hyperlipidemia, unspecified
CPT/HCPCS: 36415; 80053; 80061; 80076; 82043; 82248; 83036; 84146; 84402; 84403; 85025

== ENCOUNTER 2022-10-27 08:06 | Outpatient (AMB) | payer BC, SELFPAY ==
[2022-10-27 08:09] VITALS: BP 146/86; PULSE 64; BMI 39.9
--- NOTE | 2022-10-27 08:09 | A.OFFVIS_ITS ---
Intake Vital Signs 10/27/22 08:09 Height 5 ft 10 in Weight 277 lb 12.519 oz BMI 39.9 BP 146/86 H Blood Pressure Location Lt brachial Position Sitting Pulse 64 Pulse Source Pulse Oximeter Intake Visit Reasons: f/u pituitary macroadenoma/ Confirmed Intake Note: Patient present today for Pituitary Macroadenoma follow up visit. 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 Accompanied by: Self / Same As Patient Allergies gabapentin Adverse Reaction (Intermediate, Verified 10/27/22 08:15) Agitated Medication List - Last Reconciled 10/27/22 by Kevin Portillo MD cabergoline 0.25 mg (1/2 x 0.5 mg) PO 2XW ibuprofen 800 mg PO BID 30 days lancets (SolaveiTouch Delica Lancets) Test blood sugars 2-3 times per day metformin 850 mg PO BID OneTouch Verio test strips (blood sugar diagnostic) Test blood sugar 2-3 times per day NS pravastatin 40 mg PO DAILY HPI HPI Comments History of Present Illness Details This 67-year-old white male sent endocrinology for evaluation of pituitary macroadenoma. Prior workup showed elevated prolactin. In 02/2021 , nipples were tender . Had maamogram which showed breasts but no cancer . No breast D/C . He denies any symptoms of acromegaly or [place] syndrome. 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 He denies any loss of vision or increased headaches. He denies any breast discharge. Workup for hypersecretion and hyposecretion of pituitary axis was nl He started cabergoline 0.5 mg2 X/wk with normalization of prolactin Energy better. He did see Dr. yeboah at [facility] who advised that he continue medical therapy. MRI the pituitary shows the adenoma has been stable. Patient does have a history of chronic nosebleeds but states recently has had several nosebleeds. These were bloody in nature did not contain clear fluid. Recent MRI showed stability in the size of the adenoma with possible invasion of the cavernous sinus but no effect on the optic chiasm [facility] Medical History (Updated 03/18/22 @ 13:02 by Tawny Rodas MD) Annual physical exam Anxiety Back pain DM type 2 (diabetes mellitus, type 2) Hyperglycemia Hyperlipidemia Left breast lump Lump of right breast Overweight Pathologic high serum prolactin Prolactinoma Tobacco dependence Surgical History Hx of tooth extraction Family History Father Diabetes Hypertension Mother Hypertension Breast cancer Maternal Uncle Lung cancer Sister Mental health disorder Diabetes Social History Housing: House Alcohol intake: current Alcohol intake frequency: a few times a week Alcohol type: beer Patient Tobacco Use Status: Current everyday Tobacco user Tobacco use type: Cigarette Cigarettes Per Day: 20 e-Cigarette/Vaping Use: Never Used Current occupational status: employed Cognitive needs: No Hearing needs: No Vision needs: No Physical Exam Vital Signs: Last Vital Signs Pulse 64 10/27/22 08:09 BP 146/86 H 10/27/22 08:09 BMI result Body Mass Index 39.9 Const Other: No visual field loss by gross confrontation Assessment & Plan Assessment & Plan (1) Prolactinoma: Code(s): D35.2 - Benign neoplasm of pituitary gland Plan: This is a 67-year-old white male with a 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 The plan is to decrease the cabergoline to 0.25 mg twice weekly. Will recheck prolactin fasting,, liver panel in 6 weeks time. . If his testosterone does not recover in the future, we could use testosterone in combination with the dopamine agonist Orders: Orders Liver Panel Today D35.2 - Benign neoplasm of pituitary gland Prolactin 8 Weeks D35.2 - Benign neoplasm of pituitary gland Medications: Changed From cabergoline 0.5 mg PO 2XW 10 tabs 5RF To cabergoline 0.25 mg (1/2 x 0.5 mg) PO 2XW 10 tabs 5RF Coding Level of Care Code Est Pt Level 3 (20220) Diagnoses Prolactinoma D35.2
== END 2022-10-27 08:47 | disposition home or self-care (01) ==
PROVIDERS: PCP Internal Medicine; Visit Provider Internal Medicine Endocrinology, Diabetes & Metabolism
DX: D35.2 Benign neoplasm of pituitary gland (principal)
CPT/HCPCS: 99213

== ENCOUNTER → 2022-10-27 08:06 | Outpatient (BNVA) | payer BC, SELFPAY | PROVIDERS: PCP Internal Medicine; Visit Provider Internal Medicine Endocrinology, Diabetes & Metabolism ==

== ENCOUNTER 2023-01-22 11:04 | Outpatient (AMB) | payer BC, SELFPAY ==
--- NOTE | 2023-01-22 11:33 | A.OFFPC_ITS ---
Vital Signs 01/22/23 11:34 Height 5 ft 10 in Weight 279 lb BMI 40.0 BP 136/80 Blood Pressure Location Lt brachial Position Sitting Pulse 80 Pulse Source Pulse Oximeter Pulse Oximetry (%) 100 Oxygen Delivery Method Room Air Intake Visit Reasons: Wound on L leg Intake Note: Pt is here today for a sick visit. Pt c/o would on his L lower leg. Pt states that he has a cut that is not healing. Allergies gabapentin Adverse Reaction (Intermediate, Verified 01/22/23 11:37) Agitated Medication List - Last Reconciled 01/22/23 by Tawny Rodas MD cabergoline 0.25 mg (1/2 x 0.5 mg) PO 2XW ibuprofen 800 mg PO BID 30 days lancets (SvbtleTouch Delica Lancets) Test blood sugars 2-3 times per day metformin 850 mg PO BID OneTouch Verio test strips (blood sugar diagnostic) Test blood sugar 2-3 times per day NS pravastatin 40 mg PO DAILY Tobacco use date assessed: 01/22/23 Fall risk assessment: No Falls in past year Last assessed Fall Risk: 01/22/23 Dental Screening Dental Screen Date: 01/22/23 Did you have a dental visit in the last 12 months?: Yes Did you have a dental problem in the last 6 months where you did not have access to dental care?: No Was dental information given to patient?: Patient has dentist HPI Wound on L leg HPI Details Patient complains of nonhealing wound for 2 months on the left cunningham. Patient hit his like with a hammer 2 months ago and has been applying Silvadene dressing. He has a chronic lower extremity edema due to venous insufficiency but has not been wearing impression knee highs. Diabetes is stable with fasting glucose between 80 and 120. [facility] Medical History (Updated 01/22/23 @ 12:21 by Tawny Rodas MD) Hyperlipidemia Prolactinoma DM type 2 (diabetes mellitus, type 2) Pathologic high serum prolactin Anxiety Tobacco dependence Lump of right breast Left breast lump Back pain Overweight Annual physical exam Hyperglycemia Surgical History Hx of tooth extraction Family History Father Diabetes Hypertension Mother Hypertension Breast cancer Maternal Uncle Lung cancer Sister Mental health disorder Diabetes Social History Housing: House Alcohol intake: current Alcohol intake frequency: a few times a week Alcohol type: beer Patient Tobacco Use Status: Current everyday Tobacco user Tobacco use type: Cigarette Cigarettes Per Day: 20 e-Cigarette/Vaping Use: Never Used Current occupational status: employed Cognitive needs: No Hearing needs: No Vision needs: No Questionnaire Thrive Questionnaire Date Thrive assessed: 03/18/22 ALCIRA-7 AMB Questionnaire ALCIRA-7 Date ALCIRA - 7 assessed: 03/18/22 Source: Developed by Drs. Kevin Hutchins, Antonia Woodall, Miguel Angel Phelps and colleagues, with an educational wili from [employer]. Review of Systems Const All systems reviewed & are unremarkable except as noted in HPI and below Reports no additional complaints Eyes Reports no additional complaints ENT Reports no additional complaints Card Reports no additional complaints Resp Reports no additional complaints GI Reports no additional complaints Physical exam (Primary Care) Vital Signs: Last Vital Signs Pulse 80 01/22/23 11:34 BP 136/80 01/22/23 11:34 Pulse Ox 100 01/22/23 11:34 Oxygen Delivery Method Room Air 01/22/23 11:34 BMI result Body Mass Index 40.0 Tobacco/Smoking Status: Tobacco use Status Tobacco use date assessed 01/22/23 01/22/23 11:38 Patient Tobacco Use Status Current everyday Tobacco 01/22/23 11:38 Tobacco use type Cigarette 01/22/23 11:38 e-Cigarette/Vaping Use Never Used 01/22/23 11:38 Thrive Assessment: Date of Thrive Assessment Date Thrive assessed 03/18/22 01/22/23 11:38 Const General: no acute distress Neck Neck: Yes supple Resp Effort & Inspection: normal respiratory effort Auscultation: clear to auscultation bilaterally Cardio Rhythm: regular rhythm Heart sounds: S1 normal heart sound present and S2 normal heart sound present Extrem Other: +2 pitting edema and chronic venous stasis bilaterally there is a 2 cm round of ulcer on the left cunningham with granulation tissue and small amount to yellowish discharge at the base Assessment and Plan Assessment & Plan (1) Non-healing ulcer of lower extremity: Comment: left cunningham Code(s): L97.909 - Non-pressure chronic ulcer of unspecified part of unspecified lower leg with unspecified severity Plan: Referred wound clinic, patient was advised to work compression knee-high (2) DM type 2 (diabetes mellitus, type 2): Code(s): E11.9 - Type 2 diabetes mellitus without complications Plan: Continue current medication and return in February with a fasting labs before (3) Hyperlipidemia: Code(s): E78.5 - Hyperlipidemia, unspecified Plan: Continue statin (4) Overweight: Code(s): E66.3 - Overweight Orders: Orders Hemoglobin A1c 2 Months E11.9 - Type 2 diabetes mellitus without complications, E66.3 - Overweight, E78.5 - Hyperlipidemia, unspecified Comprehensive [place]. Panel Fast 2 Months E11.9 - Type 2 diabetes mellitus without complications, E66.3 - Overweight, E78.5 - Hyperlipidemia, unspecified Lipid Panel 2 Months E11.9 - Type 2 diabetes mellitus without complications, E66.3 - Overweight, E78.5 - Hyperlipidemia, unspecified Microalbumin, Random (w Creat) 2 Months E11.9 - Type 2 diabetes mellitus without complications, E66.3 - Overweight, E78.5 - Hyperlipidemia, unspecified Referrals Wound Care Referral E11.9 - Type 2 diabetes mellitus without complications, E66.3 - Overweight, E78.5 - Hyperlipidemia, unspecified, L97.909 - Non-pressure chronic ulcer of unspecified part of unspecified lower leg with unspecified severity Coding Level of Care Code Est Pt Level 4 (86882) Diagnoses Non-healing ulcer of lower extremity L97.909 DM type 2 (diabetes mellitus, type 2) E11.9 Hyperlipidemia E78.5 Overweight E66.3
[2023-01-22 11:34] VITALS: BP 136/80; PULSE 80; O2SAT 100; BMI 40.0
== END 2023-01-22 12:25 | disposition home or self-care (01) ==
PROVIDERS: PCP Internal Medicine; Visit Provider Internal Medicine
DX: L97.909 Non-pressure chronic ulcer of unspecified part of unspecified lower leg with unspecified severity (principal); E11.9 Type 2 diabetes mellitus without complications; E78.5 Hyperlipidemia, unspecified; E66.3 Overweight
CPT/HCPCS: 99214

== ENCOUNTER 2023-02-09 08:33 | Outpatient (RCR) | payer MEDICARE, SELFPAY | END 2023-06-03 14:18 | disposition home or self-care (01) | LOC: HO.WCC 08:33 | PROVIDERS: PCP Internal Medicine; Visit Provider Physician Assistant | DX: E11.622 Type 2 diabetes mellitus with other skin ulcer (principal); L97.822 Non-pressure chronic ulcer of other part of left lower leg with fat layer exposed; I87.2 Venous insufficiency (chronic) (peripheral); Z79.84 Long term (current) use of oral hypoglycemic drugs; Z79.899 Other long term (current) drug therapy | CPT/HCPCS: 11042; 99212 ==

== ENCOUNTER 2023-03-19 06:02 | Outpatient (REF) | payer MEDICARE, SELFPAY ==
[2023-03-19 12:14] LABS: Alanine Aminotransferase 17 U/L (0-40); Albumin Level 4.1 g/dL (3.5-5.0); Alkaline Phosphatase 67 U/L (39-117); Anion Gap 12 (12-20); Aspartate Amino Transferase 15 U/L (5-37); Bilirubin Total 0.4 mg/dL (0.0-1.0); Blood Urea Nitrogen 17 mg/dL (9-16); Calcium 9.5 mg/dL (8.4-10.2); Carbon Dioxide 27 mmol/L (22-29); Chloride 105 mmol/L (96-108); Cholesterol 160 mg/dL (<200); Estimated Glomerular Filt Rate > 60; Glucose Fasting 130 mg/dL (60-99); HDL Cholesterol 49 mg/dL (>40); LDL Cholesterol Calculated 94 mg/dL (<100); Potassium 4.4 mmol/L (3.3-5.1); Sodium 140 mmol/L (135-145); Total Protein 6.8 g/dL (6.5-8.0); Triglycerides 85 mg/dL (<150)
[2023-03-19 12:16] LABS: Estimated Average Glucose 140 mg/dL; Hemoglobin A1c % 6.5 % (<6.0)
[2023-03-19 12:45] LABS: Creatinine Urine 93.34 mg/dL; Microalbum/Creatinine Ratio Ur 8.5 ug/mg cr (<30)
== END 2023-03-19 06:03 | disposition home or self-care (01) ==
LOC: HO.HMGCLDS 06:02
PROVIDERS: PCP Internal Medicine; Visit Provider Internal Medicine
DX: Z00.00 Encounter for general adult medical examination without abnormal findings (principal); E11.9 Type 2 diabetes mellitus without complications; E78.5 Hyperlipidemia, unspecified; E66.3 Overweight; M25.561 Pain in right knee; M25.562 Pain in left knee
CPT/HCPCS: 36415; 80053; 80061; 82043; 82570; 83036

== ENCOUNTER 2023-03-23 12:30 | Outpatient (AMB) | payer BC, SELFPAY ==
[2023-03-23 12:53] VITALS: BP 134/78; PULSE 69; O2SAT 98; BMI 41.5
--- NOTE | 2023-03-23 12:53 | A.OFFPC_ITS ---
Vital Signs 03/23/23 12:53 Height 5 ft 10 in Weight 289 lb BMI 41.5 BP 134/78 Blood Pressure Location Rt brachial Position Sitting Pulse 69 Pulse Source Pulse Oximeter Pulse Oximetry (%) 98 Oxygen Delivery Method Room Air Intake Visit Reasons: Annual PE Intake Note: Pt is here today for PE. Allergies gabapentin Adverse Reaction (Intermediate, Verified 03/23/23 13:04) Agitated Medication List - Last Reconciled 03/23/23 by Tawny Rodas MD cabergoline 0.25 mg (1/2 x 0.5 mg) PO 2XW ibuprofen 800 mg PO BID 30 days lancets (N[employer] MedicalTouch Delica Lancets) Test blood sugars 2-3 times per day metformin 850 mg PO BID OneTouch Verio test strips (blood sugar diagnostic) Test blood sugar 2-3 times per day NS pravastatin 40 mg PO DAILY Tobacco use date assessed: 03/23/23 Fall risk assessment: No Falls in past year Last assessed Fall Risk: 03/23/23 Dental Screening Dental Screen Date: 03/23/23 Did you have a dental visit in the last 12 months?: Yes Did you have a dental problem in the last 6 months where you did not have access to dental care?: No Was dental information given to patient?: Patient has dentist HPI Annual PE HPI Details Pt presents for PE. [facility] Medical History (Updated 03/23/23 @ 14:09 by Tawny Rodas MD) Hyperlipidemia Prolactinoma DM type 2 (diabetes mellitus, type 2) Pathologic high serum prolactin Anxiety Tobacco dependence Back pain Overweight Annual physical exam Hyperglycemia Surgical History Hx of tooth extraction Family History Father Diabetes Hypertension Mother Hypertension Breast cancer Maternal Uncle Lung cancer Sister Mental health disorder Diabetes Social History Housing: House Alcohol intake: current Alcohol intake frequency: a few times a week Alcohol type: beer Patient Tobacco Use Status: Current everyday Tobacco user Tobacco use type: Cigarette Cigarettes Per Day: 20 e-Cigarette/Vaping Use: Never Used Current occupational status: employed Cognitive needs: No Hearing needs: No Vision needs: No Questionnaire PHQ-9 Over the last 2 weeks, how often have you been bothered by any of the following problems? 1. Little interest or pleasure in doing things: not at all 2. Feeling down, depressed, or hopeless: not at all 3. Trouble falling or staying asleep, or sleeping too much: not at all 4. Feeling tired or having little energy: not at all 5. Poor appetite or overeating: not at all 6. Feeling bad about yourself - or that you are a failure or have let yourself or your family down: not at all 7. Trouble concentrating on things, such as reading the newspaper or watching television: not at all 8. Moving or speaking so slowly that other people could have noticed. Or the opposite - being so fidgety or restless that you have been moving around a lot more than usual: not at all 9. Thoughts that you would be better off or of hurting yourself in some way: not at all Total score: 0 Depression Screening Interpretation: Negative Depression Screening Done: Yes Source: Developed by Drs. Kevin Hutchins, Antonia Woodall, Miguel Angel Phelps and colleagues, with an educational wili from [email or web address]. Thrive Questionnaire Date Thrive assessed: 03/23/23 I am a: Patient What is your living situation today?: I have a steady place to live Within the past 12 months, did the food you bought not last and you didn't have the money to get more?: Never true Within the past 12 months, did you worry whether your food would run out before you got money to buy more?: Never true Do you have trouble paying for medicines?: No Do you have trouble getting transportation to medical appointments?: No Do you have trouble paying your heating and electricity bill?: No Do you have trouble taking care of your child, family member or friend?: No Do you have trouble with day-to-day activities such as bathing, preparing meals, shopping, managing finances, etc.?: No Are you currently unemployed and looking for a job?: No Are you interested in more education?: No Please select the resources that you would like help with: None Currently or been in a relationship where the following occur: no concerns re ported THRIVE Score: 0 AUDIT C Alcohol Use Questionnaire (AUDIT-C) 1. How often do you have a drink containing alcohol?: 2-3 times a week 2. How many drinks containing alcohol do you have on a typical day when you are drinking?: 1 or 2 3. How often do you have six or more drinks on one occasion?: Never Total Score: 3 ALCIRA-7 AMB Questionnaire LACIRA-7 Date ALCIRA - 7 assessed: 03/23/23 Feeling nervous, anxious, or on edge: 0 = Not at all Not being able to stop or control worryin = Not at all Worrying too much about different things: 0 = Not at all Trouble relaxin = Not at all Being so restless that it is hard to sit still: 0 = Not at all Becoming easily annoyed or irritable: 0 = Not at all Feeling afraid as if something awful might happen: 0 = Not at all Total ALCIRA-7 score (0-4 normal; 5-9 mild; 10-14 moderate; 15-21 severe): 0 Source: Developed by Drs. Kevin Hutchins, Antonia Woodall, Miguel Angel Phelps and colleagues, with an educational wili from [email or web address]. Review of Systems Const All systems reviewed & are unremarkable except as noted in HPI and below Reports no additional complaints Eyes Reports no additional complaints ENT Reports no additional complaints Card Reports no additional complaints and Reports leg ulcers Resp Reports no additional complaints GI Reports no additional complaints Physical exam (Primary Care) Vital Signs: Last Vital Signs Pulse 69 03/23/23 12:53 BP 134/78 03/23/23 12:53 Pulse Ox 98 03/23/23 12:53 Oxygen Delivery Method Room Air 03/23/23 12:53 BMI result Body Mass Index 41.5 Tobacco/Smoking Status: Tobacco use Status Tobacco use date assessed 03/23/23 03/23/23 13:07 Patient Tobacco Use Status Current everyday Tobacco 03/23/23 12:55 Tobacco use type Cigarette 03/23/23 12:55 e-Cigarette/Vaping Use Never Used 03/23/23 12:55 PHQ-9: PHQ-9 Score PHQ-9: Total score 0 03/23/23 13:40 Depression Screening Interpretation: Negative Thrive Assessment: Date of Thrive Assessment Date Thrive assessed 03/23/23 03/23/23 13:40 Currently or been in a relationship where the following occur: no concerns reported Const General: no acute distress HENMT Head: Yes normal to inspection Ears: hearing grossly normal bilaterally Face and sinus: Yes normal facial exam Mouth: Normal oral and palatal mucosa present Throat: Yes posterior oropharynx normal Neck Neck: Yes no lymphadenopathy and Yes supple Resp Effort & Inspection: normal respiratory effort Auscultation: clear to auscultation bilaterally Cardio Rhythm: regular rhythm Heart sounds: S1 normal heart sound present and S2 normal heart sound present GI Palpation (GI): Soft to palpation Percussion: Yes normal to percussion Auscultation: normal bowel sounds Assessment and Plan Assessment & Plan (1) Annual physical exam: Code(s): Z00.00 - Encounter for general adult medical examination without abnormal findings Plan: well balanced diet, weight loss, exercise discussed. (2) Prolactinoma: Comment: f/u with endo Code(s): D35.2 - Benign neoplasm of pituitary gland (3) BPH (benign prostatic hyperplasia): Code(s): N40.0 - Benign prostatic hyperplasia without lower urinary tract symptoms (4) Tobacco dependence: Comment: Patient refuse lung cancer CT screening 03/16, 03/17 Code(s): F17.200 - Nicotine dependence, unspecified, uncomplicated Plan: Tobacco quitting discussed with patient (5) DM type 2 (diabetes mellitus, type 2): Code(s): E11.9 - Type 2 diabetes mellitus without complications Plan: A1c is 6.5, ADA diet increase exercise weight loss discussed with the patient continue metformin follow-up in 4 months with a fasting labs before (6) Hyperlipidemia: Code(s): E78.5 - Hyperlipidemia, unspecified Plan: Continue statin (7) Overweight: Code(s): E66.3 - Overweight Plan: Weight loss discussed with the patient Orders: Orders PSA,Total (Free>4and<10) 4 Months D35.2 - Benign neoplasm of pituitary gland, N40.0 - Benign prostatic hyperplasia without lower urinary tract symptoms, Z00.00 - Encounter for general adult medical examination without abnormal findings Complete Blood Count Auto Diff 2 Months D35.2 - Benign neoplasm of pituitary gland, N40.0 - Benign prostatic hyperplasia without lower urinary tract symptoms, Z00.00 - Encounter for general adult medical examination without abnormal findings Hemoglobin A1c 4 Months E11.9 - Type 2 diabetes mellitus without complications, E78.5 - Hyperlipidemia, unspecified, Z00.00 - Encounter for general adult medical examination without abnormal findings Vitamin B12 and Folate 4 Months D64.9 - Anemia, unspecified, N40.0 - Benign prostatic hyperplasia without lower urinary tract symptoms IRON PROFILE 4 Months D64.9 - Anemia, unspecified, N40.0 - Benign prostatic hyperplasia without lower urinary tract symptoms Comprehensive [place]. Panel Fast 4 Months E11.9 - Type 2 diabetes mellitus without complications, E78.5 - Hyperlipidemia, unspecified, Z00.00 - Encounter for general adult medical examination without abnormal findings Lipid Panel 4 Months E11.9 - Type 2 diabetes mellitus without complications, E78.5 - Hyperlipidemia, unspecified, Z00.00 - Encounter for general adult medical examination without abnormal findings Microalbumin, Random (w Creat) 4 Months E11.9 - Type 2 diabetes mellitus without complications, E78.5 - Hyperlipidemia, unspecified, Z00.00 - Encounter for general adult medical examination without abnormal findings Coding Level of Care Code Est Pt Prev Care >65y(82406) Diagnoses Annual physical exam Z00.00 Prolactinoma D35.2 BPH (benign prostatic hyperplasia) N40.0 Tobacco dependence F17.200 DM type 2 (diabetes mellitus, type 2) E11.9 Hyperlipidemia E78.5 Overweight E66.3
== END 2023-03-23 14:09 | disposition home or self-care (01) ==
PROVIDERS: PCP Internal Medicine; Visit Provider Internal Medicine
DX: Z00.00 Encounter for general adult medical examination without abnormal findings (principal); E11.69 Type 2 diabetes mellitus with other specified complication; D35.2 Benign neoplasm of pituitary gland; N40.0 Benign prostatic hyperplasia without lower urinary tract symptoms; Z68.41 Body mass index [BMI] 40.0-44.9, adult; E66.3 Overweight; F17.210 Nicotine dependence, cigarettes, uncomplicated; E78.5 Hyperlipidemia, unspecified
CPT/HCPCS: 99397

== ENCOUNTER 2023-04-20 06:23 | Outpatient (REF) | payer MEDICARE, SELFPAY ==
[2023-04-20 11:03] LABS: Alanine Aminotransferase 23 U/L (0-40); Albumin Level 4.1 g/dL (3.5-5.0); Alkaline Phosphatase 65 U/L (39-117); Aspartate Amino Transferase 15 U/L (5-37); Bilirubin Direct 0.1 mg/dL (0.0-0.5); Bilirubin Total 0.3 mg/dL (0.0-1.0)
[2023-04-22 04:49] LABS: Prolactin 11.9 ng/mL (2.0-18.0)
[2023-04-26 11:24] LABS: Testosterone, Free 6.8 pg/mL (35.0-155.0); Testosterone, Total 72 ng/dL (250-1100)
== END 2023-04-20 06:24 | disposition home or self-care (01) ==
LOC: HO.HMGCLDS 06:23
PROVIDERS: PCP Internal Medicine; Visit Provider Internal Medicine Endocrinology, Diabetes & Metabolism
DX: D35.2 Benign neoplasm of pituitary gland (principal)
CPT/HCPCS: 36415; 80076; 84146; 84402; 84403

== ENCOUNTER 2023-04-28 07:37 | Outpatient (AMB) | payer BC, SELFPAY ==
[2023-04-28 07:50] VITALS: BP 132/76; PULSE 71; BMI 42.0
--- NOTE | 2023-04-28 07:50 | A.OFFVIS_ITS ---
Intake Vital Signs 04/28/23 07:50 Height 5 ft 10 in Weight 292 lb 8.854 oz BMI 42.0 BP 132/76 Blood Pressure Location Lt brachial Position Sitting Pulse 71 Pulse Source Pulse Oximeter Intake Visit Reasons: f/u pituitary macroadenoma-confirmed Intake Note: Patient present today for Pituitary follow up visit. 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 Prior workup showed elevated prolactin. In 02/2021 , nipples were tender . Had maamogram which showed breasts but no cancer . No breast D/C . He denies any symptoms of acromegaly or [place] syndrome. 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 He denies any loss of vision or increased headaches. He denies any breast discharge. Workup for hypersecretion and hyposecretion of pituitary axis was nl He started cabergoline 0.5 mg2 X/wk with normalization of prolactin Energy better. He did see Dr. yeboah at [facility] who advised that he continue medical therapy. MRI the pituitary shows the adenoma has been stable. Patient does have a history of chronic nosebleeds but states recently has had several nosebleeds. These were bloody in nature did not contain clear fluid. Recent MRI 10/2022 showed stability in the size of the adenoma with possible invasion of the cavernous sinus but no effect on the optic chiasm PFSH Medical History (Updated 04/09/23 @ 16:07 by Tawny Rodas MD) Hyperlipidemia Prolactinoma DM type 2 (diabetes mellitus, type 2) Pathologic high serum prolactin Anxiety Tobacco dependence Back pain Overweight Annual physical exam Hyperglycemia Surgical History Hx of tooth extraction Family History Father Diabetes Hypertension Mother Hypertension Breast cancer Maternal Uncle Lung cancer Sister Mental health disorder Diabetes Social History Housing: House Alcohol intake: current Alcohol intake frequency: a few times a week Alcohol type: beer Patient Tobacco Use Status: Current everyday Tobacco user Tobacco use type: Cigarette Cigarettes Per Day: 20 e-Cigarette/Vaping Use: Never Used Current occupational status: employed Cognitive needs: No Hearing needs: No Vision needs: No Physical Exam Const Other: No visual field loss by gross confrontation Assessment & Plan Assessment & Plan (1) Prolactinoma: Comment: f/u with endo Code(s): D35.2 - Benign neoplasm of pituitary gland Plan: This is a 68-year-old white male with a 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 He has persistent hypogonadism face of normal prolactin The plan is to continue the cabergoline to 0.25 mg twice weekly. . If his testosterone does not recover in the future, we could use testosterone in combination with the dopamine agonist if patient desires. We had a long discussion regarding the benefits and risk of testosterone replacement and patient is not interested in this a currently. However, I will obtain a DEXA bone density of the hip and spine to see if there are any effects from the persistent hypogonadism Orders: Orders XR DEXA axial skeleton Today E29.1 - Testicular hypofunction Coding Level of Care Code Est Pt Level 3 (49574) Diagnoses Prolactinoma D35.2
== END 2023-04-28 09:17 | disposition home or self-care (01) ==
PROVIDERS: PCP Internal Medicine; Visit Provider Internal Medicine Endocrinology, Diabetes & Metabolism
DX: D35.2 Benign neoplasm of pituitary gland (principal)
CPT/HCPCS: 99213

== ENCOUNTER → 2023-04-28 07:37 | Outpatient (BNVA) | payer BC, SELFPAY | PROVIDERS: PCP Internal Medicine; Visit Provider Internal Medicine Endocrinology, Diabetes & Metabolism ==

== ENCOUNTER 2023-05-05 09:02 | Outpatient (REF) | payer BC, SELFPAY ==
--- NOTE | ~2023-05-05 | MM_ITS ---
EXAMINATION: BONE DENSITOMETRY CLINICAL INDICATION: Testicular hypofunction. COMPARISON: This is the patient's baseline examination. TECHNIQUE: Using a [employer] DXA System (software version: 13.1) manufactured by [employer], dual-energy x-ray absorptiometry was performed of the lumbar spine and left hip. The images are of good technical quality. Summary results are attached. FINDINGS: LEFT FEMUR, NECK: BMD 0.886 g/cm2, Z-score -0.7, T-score -1.4, osteopenia. LEFT FEMUR, TOTAL: BMD 1.107 g/cm2, Z-score 0.2, T-score 0.0, normal. AP SPINE L1-L4: BMD 1.225 g/cm2, Z-score -0.2, T-score 0.0, normal. IDENTIFIED RISK FACTORS: Current smoker, alcohol use. HISTORY OF FRACTURE: None listed. MEDICATIONS: None listed. MM/XR DEXA axial skeleton IMPRESSION: 1. DIAGNOSIS: Osteopenia based on the lowest T-score value of -1.4 in the femoral neck applying World Health Organization criteria. 2. 10-YEAR FRACTURE RISK PREDICTION, FRAX: Major osteoporotic fracture (clinical spine, forearm, hip or shoulder) 6.9%. Hip fracture 2.2%. 3. Treatment Recommendations: NOF guidelines recommend consideration for treatment in postmenopausal women and men age 50 and older presenting with the following: -A hip or vertebral (clinical or morphometric) fracture. -T-score less than or equal to -2.5 at the femoral neck or spine after appropriate evaluation to exclude secondary causes. -Low bone mass at the hip or spine and a 10-year fracture probability by FRAX of greater than or equal to 3% for hip fracture or greater than or equal to 20% for major osteoporotic fracture based on the [place] adapted WHO algorithm. 4. Other Recommendations: All treatment decisions require clinical judgment and consideration of individual patient factors, including patient preferences, comorbidities, previous drug use, risk factors not captured in the FRAX model (e.g. frailty, falls, vitamin D deficiency, increased bone turnover, interval significant decline in bone density) and possible under or overestimation of fracture risk by FRAX. Additional medical evaluation for secondary cause of low bone mineral density may be appropriate. FUTURE SCAN RECOMMENDATION: People with diagnosed cases of osteoporosis or at high risk for fracture should have regular bone mineral density tests. For patients eligible for Medicare, routine testing is allowed once every 2 years. The testing frequency can be increased to one year for patients who have rapidly progressing disease, those who are receiving or discontinuing medical therapy to restore bone mass, or have additional risk factors.
== END 2023-05-05 09:03 | disposition home or self-care (01) ==
LOC: HO.MAMMO 09:02
PROVIDERS: PCP Internal Medicine; Visit Provider Internal Medicine Endocrinology, Diabetes & Metabolism
DX: Z13.820 Encounter for screening for osteoporosis (principal); E29.1 Testicular hypofunction; M85.852 Other specified disorders of bone density and structure, left thigh
CPT/HCPCS: 77080

== ENCOUNTER 2023-05-07 10:23 | Outpatient (AMB) | payer BC, SELFPAY ==
--- NOTE | 2023-05-07 10:25 | MHC.PC.OV ---
Vital Signs 05/07/23 10:26 Height 5 ft 1 in Weight 290 lb BMI 54.8 BP 128/84 Blood Pressure Location Lt brachial Position Sitting Pulse 54 Pulse Source Pulse Oximeter Pulse Oximetry (%) 99 Oxygen Delivery Method Room Air Intake Visit Reasons: Pre op cataract surgery on 05/14/23 Dr. Ortiz Intake Note: Pt is here today for a pre op visit. Pt is having cataract surgery on 05/14/[address] Ortiz. Allergies gabapentin Adverse Reaction (Intermediate, Verified 05/07/23 10:28) Agitated Medication List - Last Reconciled 05/07/23 by Tawny Rodas MD cabergoline 0.25 mg (1/2 x 0.5 mg) PO 2XW ibuprofen 800 mg PO BID 30 days lancets Test blood sugars 2-3 times per day metformin 850 mg PO BID olmesartan 5 mg PO DAILY OneTouch Verio test strips (blood sugar diagnostic) Test blood sugar once a day NS pravastatin 40 mg PO DAILY Tobacco use date assessed: 05/07/23 HPI Pre op cataract surgery on 05/14/23 Dr. Ortiz HPI Details Patient presents for the preop of L eye cataract surgery. Type 2 diabetes and hyperlipidemia are controlled on current medications. Patient gained 11 lb since January. [facility] Medical History Hyperlipidemia Prolactinoma DM type 2 (diabetes mellitus, type 2) Pathologic high serum prolactin Anxiety Tobacco dependence Back pain Overweight Annual physical exam Hyperglycemia Surgical History Hx of tooth extraction Family History Father Diabetes Hypertension Mother Hypertension Breast cancer Maternal Uncle Lung cancer Sister Mental health disorder Diabetes Social History Housing: House Alcohol intake: current Alcohol intake frequency: a few times a week Alcohol type: beer Patient Tobacco Use Status: Current everyday Tobacco user Tobacco use type: Cigarette Cigarettes Per Day: 20 e-Cigarette/Vaping Use: Never Used Current occupational status: employed Cognitive needs: No Hearing needs: No Vision needs: No Questionnaire Thrive Questionnaire Date Thrive assessed: 03/23/23 AUDIT C Alcohol Use Questionnaire (AUDIT-C) 1. How often do you have a drink containing alcohol?: 4 or more times a week 2. How many drinks containing alcohol do you have on a typical day when you are drinking?: 1 or 2 3. How often do you have six or more drinks on one occasion?: Never Total Score: 4 ALCIRA-7 AMB Questionnaire ALCIRA-7 Date ALCIRA - 7 assessed: 03/23/23 Feeling nervous, anxious, or on edge: 1 = Several days Not being able to stop or control worryin = Several days Worrying too much about different things: 1 = Several days Trouble relaxin = More than half the days Being so restless that it is hard to sit still: 2 = More than half the days Becoming easily annoyed or irritable: 2 = More than half the days Feeling afraid as if something awful might happen: 1 = Several days Total ALCIRA-7 score (0-4 normal; 5-9 mild; 10-14 moderate; 15-21 severe): 10 Source: Developed by Drs. Kevin Hutchins, Antonia Woodall, Miguel Angel Phelps and colleagues, with an educational wili from [employer]. Review of Systems Const All systems reviewed & are unremarkable except as noted in HPI and below Reports no additional complaints Eyes Reports no additional complaints ENT Reports no additional complaints Card Reports no additional complaints Resp Reports no additional complaints GI Reports no additional complaints Reports no additional complaints Physical exam (Primary Care) Vital Signs: Last Vital Signs Pulse 54 05/07/23 10:26 BP 128/84 05/07/23 10:26 Pulse Ox 99 05/07/23 10:26 Oxygen Delivery Method Room Air 05/07/23 10:26 BMI result Body Mass Index 54.8 Tobacco/Smoking Status: Tobacco use Status Tobacco use date assessed 05/07/23 05/07/23 10:31 Patient Tobacco Use Status Current everyday Tobacco 05/07/23 10:28 Tobacco use type Cigarette 05/07/23 10:28 e-Cigarette/Vaping Use Never Used 05/07/23 10:28 Thrive Assessment: Date of Thrive Assessment Date Thrive assessed 03/23/23 05/07/23 10:28 Const General: no acute distress HENMT Head: Yes normal to inspection Mouth: Normal oral and palatal mucosa present Eyes General: appearance normal, both eyes and all related structures Neck Neck: Yes supple Resp Effort & Inspection: normal respiratory effort Auscultation: clear to auscultation bilaterally Cardio Rhythm: regular rhythm Heart sounds: S1 normal heart sound present and S2 normal heart sound present GI Inspection: Yes normal to inspection Palpation (GI): Soft to palpation Percussion: Yes normal to percussion Auscultation: normal bowel sounds Assessment and Plan Assessment & Plan (1) Cataract: Code(s): H26.9 - Unspecified cataract Plan: Patient is medically cleared for cataract surgery (2) Non-healing ulcer of lower extremity: Comment: left cunningham, f/u with Wound Clinic Code(s): L97.909 - Non-pressure chronic ulcer of unspecified part of unspecified lower leg with unspecified severity Plan: Follow-up with wound clinic (3) Prolactinoma: Comment: f/u with endo Code(s): D35.2 - Benign neoplasm of pituitary gland Plan: Follow-up with the endocrinology continue cabergoline (4) DM type 2 (diabetes mellitus, type 2): Code(s): E11.9 - Type 2 diabetes mellitus without complications Plan: ADA diet increase exercise weight loss discussed with the patient continue metformin return for follow-up in June with fasting labs before (5) HTN (hypertension): Code(s): I10 - Essential (primary) hypertension Plan: Start 5 mg of olmesartan (6) Morbid obesity with BMI of 50.0-59.9, adult: Code(s): E66.01 - Morbid (severe) obesity due to excess calories; Z68.43 - Body mass index [BMI] 50.0-59.9, adult Plan: Decrease caloric intake increase physical activity weight loss discussed with the patient Medications: New olmesartan 5 mg PO DAILY 90 tabs 0RF Coding Level of Care Code Est Pt Level 4 (97402) Diagnoses Cataract H26.9 Non-healing ulcer of lower extremity L97.909 Prolactinoma D35.2 DM type 2 (diabetes mellitus, type 2) E11.9 HTN (hypertension) I10 Morbid obesity with BMI of 50.0-59.9, adult E66.01; Z68.43
[2023-05-07 10:26] VITALS: BP 128/84; PULSE 54; O2SAT 99; BMI 54.8
== END 2023-05-07 11:17 | disposition home or self-care (01) ==
PROVIDERS: PCP Internal Medicine; Visit Provider Internal Medicine
DX: D35.2 Benign neoplasm of pituitary gland (principal); E66.01 Morbid (severe) obesity due to excess calories; Z68.43 Body mass index [BMI] 50.0-59.9, adult; L97.909 Non-pressure chronic ulcer of unspecified part of unspecified lower leg with unspecified severity; E11.42 Type 2 diabetes mellitus with diabetic polyneuropathy; H26.9 Unspecified cataract; I10 Essential (primary) hypertension
CPT/HCPCS: 99214

== ENCOUNTER 2023-06-09 12:56 | Outpatient (AMB) | payer BC, SELFPAY ==
--- NOTE | 2023-06-09 13:10 | MHC.OFFWIV ---
Intake Vital Signs 06/09/23 13:11 Height 5 ft 10 in Weight 285 lb 6 oz BMI 40.9 BP 130/80 Blood Pressure Location Lt brachial Position Sitting Pulse 97 Pulse Source Pulse Oximeter Temp 99 F Temp Source Oral Pulse Oximetry (%) 99 Oxygen Delivery Method Room Air Intake Visit Reasons: SOB, Congested ([phone]) Intake Note: Patient is here with cough, shortness of breath weakness, diarrhea, loss of appetite, congestion since . Patient Tobacco Use Status: Current everyday Tobacco user Allergies gabapentin Adverse Reaction (Intermediate, Verified 06/09/23 13:14) Agitated Do you need a note to return to daycare/school/sports/work: No HPI HPI Comments History of Present Illness Details 68 y/o male patient who presents to walk in clinic with c/o URI symptoms since . C/o wheezing, coughing, chest tightness and SOB. Denies fevers, chills, vomiting but endorses Nausea. PFSH Medical History Hyperlipidemia Prolactinoma DM type 2 (diabetes mellitus, type 2) Pathologic high serum prolactin Anxiety Tobacco dependence Back pain Overweight Annual physical exam Hyperglycemia Surgical History Hx of tooth extraction Family History Father Diabetes Hypertension Mother Hypertension Breast cancer Maternal Uncle Lung cancer Sister Mental health disorder Diabetes Social History Housing: House Alcohol intake: current Alcohol intake frequency: a few times a week Alcohol type: beer Patient Tobacco Use Status: Current everyday Tobacco user Tobacco use type: Cigarette Cigarettes Per Day: 20 e-Cigarette/Vaping Use: Never Used Current occupational status: employed Cognitive needs: No Hearing needs: No Vision needs: No Review of Systems Const All systems reviewed & are unremarkable except as noted in HPI and below Physical Exam Vital Signs: Last Vital Signs Temp 99 F 06/09/23 13:11 Pulse 97 06/09/23 13:11 BP 130/80 06/09/23 13:11 Pulse Ox 99 06/09/23 13:11 Oxygen Delivery Method Room Air 06/09/23 13:11 BMI result Body Mass Index 40.9 Const General: comfortable and no acute distress Nutritional Appearance: obese Orientation/consciousness: patient oriented x3 HEENT Head: Yes normocephalic Neuro General: patient oriented x3 Assessment & Plan Assessment & Plan (1) Upper respiratory infection: Code(s): J06.9 - Acute upper respiratory infection, unspecified Qualifiers: URI type: unspecified viral URI Qualified Code(s): J06.9 - Acute upper respiratory infection, unspecified Plan: - Chest Xray - SARs - OTC cough remedies - Hydrate with warm fluids - Rest (2) Cough in adult: Code(s): R05.9 - Cough, unspecified Plan: - OTC cough remedies - Take medicines as directed. Orders: Orders SARS-CoV2/FLU/RSV Today J06.9 - Acute upper respiratory infection, unspecified, R05.9 - Cough, unspecified XR chest 2V Today J06.9 - Acute upper respiratory infection, unspecified, R05.9 - Cough, unspecified Medications: New doxycycline hyclate 100 mg PO BID 7 days 14 caps 0RF J06.9 - Acute upper respiratory infection, unspecified, R05.9 - Cough, unspecified benzonatate 100 mg PO TID 30 caps 0RF R05.9 - Cough, unspecified prednisone 50 mg PO DAILY 5 days 5 tabs 0RF wheezing R05.9 - Cough, unspecified, R06.2 - Wheezing albuterol sulfate 90 mcg/actuation 2 puffs inhalation Q4-6H PRN 6.7 grams 0RF shortness of breath or wheezing R05.9 - Cough, unspecified, R06.2 - Wheezing Coding Level of Care Code Est Pt Level 3 (00238) Diagnoses Viral upper respiratory tract infection J06.9 URI type: unspecified viral URI Cough in adult R05.9 Time Spent (min) 15
[2023-06-09 13:11] VITALS: BP 130/80; PULSE 97; TEMP 37.2; O2SAT 99; BMI 40.9
== END 2023-06-09 14:03 | disposition home or self-care (01) ==
PROVIDERS: PCP Internal Medicine; Visit Provider Nurse Practitioner Family
DX: J06.9 Acute upper respiratory infection, unspecified (principal); R05.9 Cough, unspecified
CPT/HCPCS: 99213

== ENCOUNTER 2023-06-09 13:28 | Outpatient (REF) | payer BC, SELFPAY ==
--- NOTE | ~2023-06-09 | XR_ITS ---
EXAMINATION: XR CHEST CLINICAL INFORMATION: Acute upper respiratory infection COMPARISON: None available. TECHNIQUE: 2 views of the chest were obtained. FINDINGS: Heart, mediastinum and vascularity within normal limits. Right lung is clear. Minimal increased markings identified in the lingula. Mild degenerative changes. XR/XR chest 2V IMPRESSION: Probable lingular atelectasis. No consolidations or failure.
[2023-06-09 17:41] LABS: Influenza A PCR POSITIVE (Negative); Influenza B PCR NEGATIVE (Negative); Resp Syncy Virus RNA Qual PCR NEGATIVE (Negative); SARS COV2 PCR INHOUSE NEGATIVE (Negative)
== END 2023-06-09 13:29 | disposition home or self-care (01) ==
LOC: HO.HMGCX 13:28
PROVIDERS: PCP Internal Medicine; Visit Provider Nurse Practitioner Family
DX: R05.9 Cough, unspecified (principal); J06.9 Acute upper respiratory infection, unspecified
CPT/HCPCS: 0241U; 71046

== ENCOUNTER 2023-06-09 13:29 | Outpatient (REF) | payer BC, SELFPAY | END 2023-06-09 13:30 | disposition home or self-care (01) | LOC: HO.LAB 13:29 | PROVIDERS: Visit Provider Nurse Practitioner Family | DX: Z13.89 Encounter for screening for other disorder (principal) ==

== ENCOUNTER 2023-06-17 17:14 | Emergency (ER) | payer OTHER, MEDICARE, SELFPAY ==
[2023-06-17 17:25] VITALS: BP 166/95; PULSE 82; O2SAT 97
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
== END 2023-06-17 18:42 | disposition left against medical advice (07) ==
LOC: HO.ED 18:34
PROVIDERS: Emergency Provider Emergency Medicine
DX: M54.2 Cervicalgia (principal)

== ENCOUNTER 2023-07-21 06:24 | Outpatient (REF) | payer MEDICARE, SELFPAY ==
[2023-07-21 11:03] LABS: Estimated Average Glucose 169 mg/dL; Hemoglobin A1c % 7.5 % (<6.0)
[2023-07-21 11:15] LABS: Alanine Aminotransferase 15 U/L (0-40); Albumin Level 4.2 g/dL (3.5-5.0); Alkaline Phosphatase 70 U/L (39-117); Anion Gap 10 (12-20); Aspartate Amino Transferase 15 U/L (5-37); Bilirubin Total 0.5 mg/dL (0.0-1.0); Blood Urea Nitrogen 18 mg/dL (9-16); Calcium 9.4 mg/dL (8.4-10.2); Carbon Dioxide 25 mmol/L (22-29); Chloride 110 mmol/L (96-108); Cholesterol 183 mg/dL (<200); Estimated Glomerular Filt Rate > 60; Glucose Fasting 145 mg/dL (60-99); HDL Cholesterol 51 mg/dL (>40); Iron 99 mcg/dL (45-160); LDL Cholesterol Calculated 108 mg/dL (<100); Percent Iron Saturation 34 % (15-50); Potassium 4.2 mmol/L (3.3-5.1); Sodium 141 mmol/L (135-145); Total Iron Binding Capacity 291 mcg/dL (228-428); Triglycerides 122 mg/dL (<150); Unsaturated Iron Binding 192 ug/dL
[2023-07-21 11:30] LABS: PSA,Total (Free>4and<10) 0.17 ng/mL (0.00-4.00)
[2023-07-21 11:40] LABS: Folate 9.3 ng/mL (> or = 4.0); Vitamin B12 291 pg/mL (200-900)
[2023-07-21 11:44] LABS: Creatinine Urine 184.15 mg/dL; Microalbum/Creatinine Ratio Ur 11.9 ug/mg cr (<30)
== END 2023-07-21 06:25 | disposition home or self-care (01) ==
LOC: HO.HMGCLDS 06:24
PROVIDERS: PCP Internal Medicine; Visit Provider Internal Medicine
DX: Z00.00 Encounter for general adult medical examination without abnormal findings (principal); E78.5 Hyperlipidemia, unspecified; E11.9 Type 2 diabetes mellitus without complications; N40.0 Benign prostatic hyperplasia without lower urinary tract symptoms; D64.9 Anemia, unspecified; D35.2 Benign neoplasm of pituitary gland; Z12.5 Encounter for screening for malignant neoplasm of prostate
CPT/HCPCS: 36415; 80053; 80061; 82043; 82570; 82607; 82746; 83036; 83540; 84153

== ENCOUNTER 2023-07-23 14:00 | Outpatient (AMB) | payer MEDICARE, SELFPAY ==
[2023-07-23 14:28] VITALS: BP 120/74; PULSE 91; O2SAT 95; BMI 40.2
--- NOTE | 2023-07-23 14:28 | A.OFFPC_ITS ---
Vital Signs 07/23/23 14:28 Height 5 ft 10 in Weight 280 lb BMI 40.2 BP 120/74 Blood Pressure Location Lt brachial Position Sitting Pulse 91 Pulse Source Pulse Oximeter Pulse Oximetry (%) 95 Oxygen Delivery Method Room Air Intake Visit Reasons: 4 Month follow up Intake Note: Pt is here today for 4 months follow up visit. Allergies gabapentin Adverse Reaction (Intermediate, Verified 07/23/23 14:29) Agitated Medication List - Last Reconciled 07/23/23 by Tawny Rodas MD albuterol sulfate 90 mcg/actuation 2 puffs inhalation Q4-6H PRN cabergoline 0.25 mg (1/2 x 0.5 mg) PO 2XW ibuprofen 800 mg PO BID lancets Test blood sugars 2-3 times per day metformin 850 mg PO BID olmesartan 5 mg PO DAILY OneTouch Verio test strips (blood sugar diagnostic) Test blood sugar once a day NS pravastatin 40 mg PO DAILY Tobacco use date assessed: 05/07/23 Fall risk assessment: No Falls in past year Last assessed Fall Risk: 07/23/23 Dental Screening Dental Screen Date: 03/23/23 HPI 4 Month follow up HPI Details Pt presents for f/u HTN, DM 2, hyperlipid, stable on meds. Patient has been eating more sweets and desserts lately. [facility] Medical History Hyperlipidemia Prolactinoma DM type 2 (diabetes mellitus, type 2) Pathologic high serum prolactin Anxiety Tobacco dependence Back pain Overweight Annual physical exam Hyperglycemia Surgical History Hx of tooth extraction Family History Father Diabetes Hypertension Mother Hypertension Breast cancer Maternal Uncle Lung cancer Sister Mental health disorder Diabetes Social History Housing: House Alcohol intake: current Alcohol intake frequency: a few times a week Alcohol type: beer Patient Tobacco Use Status: Current everyday Tobacco user Tobacco use type: Cigarette Cigarettes Per Day: 20 e-Cigarette/Vaping Use: Never Used service: No Current occupational status: employed Cognitive needs: No Hearing needs: No Vision needs: No Questionnaire Thrive Questionnaire Date Thrive assessed: 03/23/23 AUDIT C Alcohol Use Questionnaire (AUDIT-C) 1. How often do you have a drink containing alcohol?: 4 or more times a week 2. How many drinks containing alcohol do you have on a typical day when you are drinking?: 1 or 2 3. How often do you have six or more drinks on one occasion?: Never Total Score: 4 ALCIRA-7 AMB Questionnaire ALCIRA-7 Date ALCIRA - 7 assessed: 03/23/23 Feeling nervous, anxious, or on edge: 2 = More than half the days Not being able to stop or control worryin = More than half the days Worrying too much about different things: 1 = Several days Trouble relaxin = More than half the days Being so restless that it is hard to sit still: 2 = More than half the days Becoming easily annoyed or irritable: 2 = More than half the days Feeling afraid as if something awful might happen: 2 = More than half the days Total ALCIRA-7 score (0-4 normal; 5-9 mild; 10-14 moderate; 15-21 severe): 13 Source: Developed by Drs. Kevin Hutchins, Antonia Woodall, Miguel Angel Phelps and colleagues, with an educational wili from [employer]. Review of Systems Const All systems reviewed & are unremarkable except as noted in HPI and below Eyes Reports no additional complaints ENT Reports no additional complaints Card Reports no additional complaints Resp Reports no additional complaints GI Reports no additional complaints Reports no additional complaints Physical exam (Primary Care) Vital Signs: Last Vital Signs Pulse 91 07/23/23 14:28 BP 120/74 07/23/23 14:28 Pulse Ox 95 07/23/23 14:28 Oxygen Delivery Method Room Air 07/23/23 14:28 BMI result Body Mass Index 40.2 Tobacco/Smoking Status: Tobacco use Status Tobacco use date assessed 05/07/23 07/23/23 14:36 Patient Tobacco Use Status Current everyday Tobacco 07/23/23 14:36 Tobacco use type Cigarette 07/23/23 14:36 e-Cigarette/Vaping Use Never Used 07/23/23 14:36 Thrive Assessment: Date of Thrive Assessment Date Thrive assessed 03/23/23 07/23/23 14:36 Const General: no acute distress HENMT Head: Yes normal to inspection General nose exam: Normal external nose present Face and sinus: Yes normal facial exam Eyes General: appearance normal, both eyes and all related structures Neck Neck: Yes no lymphadenopathy and Yes supple Resp Effort & Inspection: normal respiratory effort Auscultation: clear to auscultation bilaterally Cardio Rhythm: regular rhythm Heart sounds: S1 normal heart sound present and S2 normal heart sound present GI Inspection: Yes normal to inspection Palpation (GI): Soft to palpation Percussion: Yes normal to percussion Auscultation: normal bowel sounds Assessment and Plan Assessment & Plan (1) Annual physical exam: Code(s): Z00.00 - Encounter for general adult medical examination without abnormal findings (2) DM type 2 (diabetes mellitus, type 2): Code(s): E11.9 - Type 2 diabetes mellitus without complications Plan: A1c is up to 7.5, ADA diet increase exercise weight loss discussed with the patient he will continue metformin (3) HTN (hypertension): Code(s): I10 - Essential (primary) hypertension Plan: Continue olmesartan (4) Morbid obesity with BMI of 50.0-59.9, adult: Code(s): E66.01 - Morbid (severe) obesity due to excess calories; Z68.43 - Body mass index [BMI] 50.0-59.9, adult Plan: Increase physical activity decrease caloric intake and weight loss discussed with the patient. Follow-up in 3 months with a fasting labs before (5) Hyperlipidemia: Code(s): E78.5 - Hyperlipidemia, unspecified Plan: Continue statin (6) Prolactinoma: Comment: f/u with endo Code(s): D35.2 - Benign neoplasm of pituitary gland Plan: Follow-up with endocrinology Orders: Orders Hemoglobin A1c 3 Months E11.9 - Type 2 diabetes mellitus without complications, E66.01 - Morbid (severe) obesity due to excess calories, I10 - Essential (primary) hypertension, Z00.00 - Encounter for general adult medical examination without abnormal findings, Z68.43 - Body mass index [BMI] 50.0-59.9, adult Complete Blood Count Auto Diff 3 Months E11.9 - Type 2 diabetes mellitus without complications, E66.01 - Morbid (severe) obesity due to excess calories, I10 - Essential (primary) hypertension, Z00.00 - Encounter for general adult medical examination without abnormal findings, Z68.43 - Body mass index [BMI] 50.0-59.9, adult Comprehensive [place]. Panel Fast 3 Months E11.9 - Type 2 diabetes mellitus without complications, E66.01 - Morbid (severe) obesity due to excess calories, I10 - Essential (primary) hypertension, Z00.00 - Encounter for general adult medical examination without abnormal findings, Z68.43 - Body mass index [BMI] 50.0-59.9, adult Lipid Panel 3 Months E11.9 - Type 2 diabetes mellitus without complications, E66.01 - Morbid (severe) obesity due to excess calories, I10 - Essential (primary) hypertension, Z00.00 - Encounter for general adult medical examination without abnormal findings, Z68.43 - Body mass index [BMI] 50.0-59.9, adult Microalbumin, Random (w Creat) 3 Months E11.9 - Type 2 diabetes mellitus without complications, E66.01 - Morbid (severe) obesity due to excess calories, I10 - Essential (primary) hypertension, Z00.00 - Encounter for general adult medical examination without abnormal findings, Z68.43 - Body mass index [BMI] 50.0-59.9, adult Coding Level of Care Code Est Pt Level 4 (45574) Diagnoses Annual physical exam Z00.00 DM type 2 (diabetes mellitus, type 2) E11.9 HTN (hypertension) I10 Morbid obesity with BMI of 50.0-59.9, adult E66.01; Z68.43 Hyperlipidemia E78.5 Prolactinoma D35.2
== END 2023-07-23 15:03 | disposition home or self-care (01) ==
PROVIDERS: PCP Internal Medicine; Visit Provider Internal Medicine
DX: E11.9 Type 2 diabetes mellitus without complications (principal); E66.01 Morbid (severe) obesity due to excess calories; Z68.43 Body mass index [BMI] 50.0-59.9, adult; D35.2 Benign neoplasm of pituitary gland; I10 Essential (primary) hypertension; E78.5 Hyperlipidemia, unspecified
CPT/HCPCS: 99214

== ENCOUNTER 2023-11-02 08:02 | Outpatient (AMB) | payer MEDICARE, SELFPAY ==
[2023-11-02 08:13] VITALS: BP 124/78; PULSE 79; O2SAT 96; BMI 40.3
--- NOTE | 2023-11-02 08:13 | A.OFFPC_ITS ---
Vital Signs 11/02/23 08:13 Height 5 ft 10 in Weight 281 lb BMI 40.3 BP 124/78 Blood Pressure Location Lt brachial Position Sitting Pulse 79 Pulse Source Pulse Oximeter Pulse Oximetry (%) 96 Oxygen Delivery Method Room Air Intake Visit Reasons: Annual PE Intake Note: Pt is here today for PE. Allergies gabapentin Adverse Reaction (Intermediate, Verified 11/02/23 08:15) Agitated Medication List - Last Reconciled 11/02/23 by Tawny Rodas MD albuterol sulfate 90 mcg/actuation 2 puffs inhalation Q4-6H PRN cabergoline 0.25 mg (1/2 x 0.5 mg) PO 2XW ibuprofen 800 mg PO BID lancets Test blood sugars 2-3 times per day metformin 850 mg PO BID olmesartan 5 mg PO DAILY OneTouch Verio test strips (blood sugar diagnostic) Test blood sugar once a day NS pravastatin 40 mg PO DAILY Tobacco use date assessed: 11/02/23 Fall risk assessment: No Falls in past year Last assessed Fall Risk: 11/02/23 Dental Screening Dental Screen Date: 11/02/23 Did you have a dental visit in the last 12 months?: Yes Did you have a dental problem in the last 6 months where you did not have access to dental care?: No Was dental information given to patient?: Patient has dentist HPI Annual PE HPI Details Pt presents for PE. PFSH Medical History Hyperlipidemia Prolactinoma DM type 2 (diabetes mellitus, type 2) Pathologic high serum prolactin Anxiety Tobacco dependence Back pain Overweight Annual physical exam Hyperglycemia Surgical History Hx of tooth extraction Family History Father Diabetes Hypertension Mother Hypertension Breast cancer Maternal Uncle Lung cancer Sister Mental health disorder Diabetes Social History Housing: House Alcohol intake: current Alcohol intake frequency: a few times a week Alcohol type: beer Patient Tobacco Use Status: Current everyday Tobacco user Tobacco use type: Cigarette Cigarettes Per Day: 20 e-Cigarette/Vaping Use: Never Used service: No Current occupational status: employed Cognitive needs: No Hearing needs: No Vision needs: No Questionnaire PHQ-9 Over the last 2 weeks, how often have you been bothered by any of the following problems? 1. Little interest or pleasure in doing things: not at all 2. Feeling down, depressed, or hopeless: not at all 3. Trouble falling or staying asleep, or sleeping too much: not at all 4. Feeling tired or having little energy: not at all 5. Poor appetite or overeating: not at all 6. Feeling bad about yourself - or that you are a failure or have let yourself or your family down: not at all 7. Trouble concentrating on things, such as reading the newspaper or watching television: not at all 8. Moving or speaking so slowly that other people could have noticed. Or the opposite - being so fidgety or restless that you have been moving around a lot more than usual: not at all 9. Thoughts that you would be better off or of hurting yourself in some way: not at all Total score: 0 Depression Screening Interpretation: Negative Depression Screening Done: Yes 32685 - PHQ-9 Billing: Yes Source: Developed by Drs. Kevin Hutchins, Antonia Woodall, Miguel Angel Phelps and colleagues, with an educational wili from [employer]. Thrive Questionnaire Date Thrive assessed: 10/31/23 I am a: Patient What is your living situation today?: I have a steady place to live Within the past 12 months, did the food you bought not last and you didn't have the money to get more?: Never true Within the past 12 months, did you worry whether your food would run out before you got money to buy more?: Never true Do you have trouble paying for medicines?: No Do you have trouble getting transportation to medical appointments?: No Do you have trouble paying your heating and electricity bill?: No Do you have trouble taking care of your child, family member or friend?: No Do you have trouble with day-to-day activities such as bathing, preparing meals, shopping, managing finances, etc.?: No Are you currently unemployed and looking for a job?: No Are you interested in more education?: No Please select the resources that you would like help with: None Currently or been in a relationship where the following occur: No concerns reported THRIVE Score: 0 AUDIT C Alcohol Use Questionnaire (AUDIT-C) 1. How often do you have a drink containing alcohol?: 4 or more times a week 2. How many drinks containing alcohol do you have on a typical day when you are drinking?: 1 or 2 3. How often do you have six or more drinks on one occasion?: Never Total Score: 4 ALCIRA-7 AMB Questionnaire ALCIRA-7 Date ALCIRA - 7 assessed: 11/02/23 Feeling nervous, anxious, or on edge: 3 = Nearly every day Not being able to stop or control worryin = Several days Worrying too much about different things: 1 = Several days Trouble relaxin = Nearly every day Being so restless that it is hard to sit still: 3 = Nearly every day Becoming easily annoyed or irritable: 3 = Nearly every day Feeling afraid as if something awful might happen: 1 = Several days Total ALCIRA-7 score (0-4 normal; 5-9 mild; 10-14 moderate; 15-21 severe): 15 Source: Developed by Drs. Kevin Hutchins, Antonia Woodall, Miguel Angel Phelps and colleagues, with an educational wili from [employer]. Review of Systems Const All systems reviewed & are unremarkable except as noted in HPI and below Reports no additional complaints Eyes Reports no additional complaints ENT Reports no additional complaints Card Reports no additional complaints Resp Reports no additional complaints GI Reports no additional complaints Reports no additional complaints Physical exam (Primary Care) Vital Signs: Last Vital Signs Pulse 79 11/02/23 08:13 BP 124/78 11/02/23 08:13 Pulse Ox 96 11/02/23 08:13 Oxygen Delivery Method Room Air 11/02/23 08:13 BMI result Body Mass Index 40.3 Tobacco/Smoking Status: Tobacco use Status Tobacco use date assessed 11/02/23 11/02/23 08:18 Patient Tobacco Use Status Current everyday Tobacco 11/02/23 08:18 Tobacco use type Cigarette 11/02/23 08:18 e-Cigarette/Vaping Use Never Used 11/02/23 08:18 PHQ-9: PHQ-9 Score PHQ-9: Total score 0 11/02/23 08:40 Depression Screening Interpretation: Negative Thrive Assessment: Date of Thrive Assessment Date Thrive assessed 10/31/23 11/02/23 08:18 Currently or been in a relationship where the following occur: No concerns reported Const General: no acute distress HENMT Head: Yes normal to inspection Mouth: Normal oral and palatal mucosa present Throat: Yes posterior oropharynx normal Eyes General: appearance normal, both eyes and all related structures Neck Neck: Yes no lymphadenopathy and Yes supple Resp Effort & Inspection: normal respiratory effort Auscultation: clear to auscultation bilaterally Cardio Rhythm: regular rhythm Heart sounds: S1 normal heart sound present and S2 normal heart sound present GI Inspection: Yes normal to inspection Palpation (GI): Soft to palpation Percussion: Yes normal to percussion Auscultation: normal bowel sounds Extrem Other: DM foot exem, skin intact, pulses +1 b/l Assessment and Plan Assessment & Plan (1) DM type 2 (diabetes mellitus, type 2): Code(s): E11.9 - Type 2 diabetes mellitus without complications Plan: A1C 7.5, ADA diet, exercise, cont meds, check labs today and in 4 months (2) Hyperlipidemia: Code(s): E78.5 - Hyperlipidemia, unspecified Plan: cont statin (3) HTN (hypertension): Code(s): I10 - Essential (primary) hypertension Plan: cont meds (4) Morbid obesity with BMI of 50.0-59.9, adult: Code(s): E66.01 - Morbid (severe) obesity due to excess calories; Z68.43 - Body mass index [BMI] 50.0-59.9, adult Plan: weight loss discussed Orders: Orders Hemoglobin A1c 4 Months E11.9 - Type 2 diabetes mellitus without complications, E66.01 - Morbid (severe) obesity due to excess calories, E78.5 - Hyperlipidemia, unspecified, I10 - Essential (primary) hypertension, Z68.43 - Body mass index [BMI] 50.0-59.9, adult Comprehensive [place]. Panel Fast 4 Months E11.9 - Type 2 diabetes mellitus without complications, E66.01 - Morbid (severe) obesity due to excess calories, E78.5 - Hyperlipidemia, unspecified, I10 - Essential (primary) hypertension, Z68.43 - Body mass index [BMI] 50.0-59.9, adult Complete Blood Count Auto Diff 4 Months E11.9 - Type 2 diabetes mellitus without complications, E66.01 - Morbid (severe) obesity due to excess calories, E78.5 - Hyperlipidemia, unspecified, I10 - Essential (primary) hypertension, Z68.43 - Body mass index [BMI] 50.0-59.9, adult Lipid Panel 4 Months E11.9 - Type 2 diabetes mellitus without complications, E66.01 - Morbid (severe) obesity due to excess calories, E78.5 - Hyperlipidemia, unspecified, I10 - Essential (primary) hypertension, Z68.43 - Body mass index [BMI] 50.0-59.9, adult Microalbumin, Random (w Creat) 4 Months E11.9 - Type 2 diabetes mellitus without complications, E66.01 - Morbid (severe) obesity due to excess calories, E78.5 - Hyperlipidemia, unspecified, I10 - Essential (primary) hypertension, Z68.43 - Body mass index [BMI] 50.0-59.9, adult Coding Level of Care Code Est Pt Level 4 (04483) Diagnoses DM type 2 (diabetes mellitus, type 2) E11.9 Hyperlipidemia E78.5 HTN (hypertension) I10 Morbid obesity with BMI of 50.0-59.9, adult E66.01; Z68.43
== END 2023-11-02 15:54 | disposition home or self-care (01) ==
PROVIDERS: PCP Internal Medicine; Visit Provider Internal Medicine
DX: E11.69 Type 2 diabetes mellitus with other specified complication (principal); E66.01 Morbid (severe) obesity due to excess calories; Z68.43 Body mass index [BMI] 50.0-59.9, adult; E78.5 Hyperlipidemia, unspecified; I10 Essential (primary) hypertension
CPT/HCPCS: 99214

== ENCOUNTER 2023-11-04 06:03 | Outpatient (REF) | payer MEDICARE, SELFPAY ==
[2023-11-04 10:05] LABS: MANUAL DIFF FLAG NO
[2023-11-04 10:36] LABS: Microalbum/Creatinine Ratio Ur 16.8 ug/mg cr (<30)
[2023-11-04 10:39] LABS: Estimated Average Glucose 143 mg/dL; Hemoglobin A1c % 6.6 % (<6.0)
[2023-11-04 10:51] LABS: Alanine Aminotransferase 20 U/L (0-40); Albumin Level 4.2 g/dL (3.5-5.0); Alkaline Phosphatase 64 U/L (39-117); Anion Gap 13 (12-20); Aspartate Amino Transferase 16 U/L (5-37); Bilirubin Total 0.3 mg/dL (0.0-1.0); Blood Urea Nitrogen 23 mg/dL (9-16); Carbon Dioxide 27 mmol/L (22-29); Chloride 108 mmol/L (96-108); Cholesterol 181 mg/dL (<200); Estimated Glomerular Filt Rate > 60; Glucose Fasting 137 mg/dL (60-99); HDL Cholesterol 49 mg/dL (>40); LDL Cholesterol Calculated 113 mg/dL (<100); Potassium 4.6 mmol/L (3.3-5.1); Sodium 143 mmol/L (135-145); Triglycerides 97 mg/dL (<150)
[2023-11-04 11:19] LABS: Basophils Percent Auto 0.4 % (0-2); Eosinophils Absolute Auto 0.4 X10*3/uL (0.0-0.4); Eosinophils Percent Auto 4.3 % (0-4); Hemoglobin 12.6 g/dl (14.0-18.0); Imm Gran Abs Auto 0.03 X10*3/uL (0.00-0.03); Imm Gran Pct Auto 0.3 % (0.0-0.4); Lymphocytes Absolute Auto 3.2 X10*3/uL (1.2-4.9); Lymphocytes Percent Auto 33.4 % (20-40); Mean Corpuscular HGB Conc 32.3 g/dl (31.0-36.0); Mean Corpuscular Hemoglobin 29.2 pg (27.0-33.0); Mean Corpuscular Volume 90.5 fL (80.0-98.0); Mean Platelet Volume 10.7 fL (9.4-12.4); Monocytes Absolute Auto 0.8 X10*3/uL (0.1-1.2); Monocytes Percent Auto 7.9 % (2-11); Neutrophils Absolute Auto 5.2 x10*3/uL (2.0-8.3); Neutrophils Percent Auto 53.7 % (45-73); Platelet Count 236 X10*3/uL (160-400); Red Blood Count 4.31 X10*6/uL (4.60-5.80); Red Cell Distribution Width 13.4 % (11.0-16.0); White Blood Count 9.6 X10*3/uL (4.8-10.8)
== END 2023-11-04 06:04 | disposition home or self-care (01) ==
LOC: HO.HMGCLDS 06:03
PROVIDERS: PCP Internal Medicine; Visit Provider Internal Medicine
DX: Z00.00 Encounter for general adult medical examination without abnormal findings (principal); I10 Essential (primary) hypertension; E11.9 Type 2 diabetes mellitus without complications; E66.01 Morbid (severe) obesity due to excess calories; Z68.43 Body mass index [BMI] 50.0-59.9, adult
CPT/HCPCS: 36415; 80053; 80061; 82043; 82570; 83036; 85025

== ENCOUNTER 2023-11-26 11:07 | Outpatient (REF) | payer MEDICARE, SELFPAY ==
[2023-11-26 13:57] LABS: Alanine Aminotransferase 18 U/L (0-40); Albumin Level 4.2 g/dL (3.5-5.0); Alkaline Phosphatase 81 U/L (39-117); Aspartate Amino Transferase 14 U/L (5-37); Bilirubin Direct 0.1 mg/dL (0.0-0.5); Bilirubin Total 0.3 mg/dL (0.0-1.0); Total Protein 7.4 g/dL (6.5-8.0)
[2023-11-29 08:58] LABS: Prolactin 12.3 ng/mL (2.0-18.0)
[2023-12-02 14:34] LABS: Testosterone, Total 87 ng/dL (250-1100)
== END 2023-11-26 11:08 | disposition home or self-care (01) ==
LOC: HO.HMGCLDS 11:07
PROVIDERS: PCP Internal Medicine; Visit Provider Internal Medicine Endocrinology, Diabetes & Metabolism
DX: D35.2 Benign neoplasm of pituitary gland (principal)
CPT/HCPCS: 36415; 80076; 84146; 84403

== ENCOUNTER 2023-11-30 07:51 | Outpatient (AMB) | payer MEDICARE, SELFPAY ==
[2023-11-30 07:58] VITALS: BP 144/76; PULSE 72; BMI 40.2
--- NOTE | 2023-11-30 07:58 | MHC.OFFVIS ---
Vital Signs 11/30/23 07:58 Height 5 ft 10 in Weight 279 lb 15.793 oz BMI 40.2 BP 144/76 H Blood Pressure Location Lt brachial Position Sitting Pulse 72 Pulse Source Pulse Oximeter Intake Visit Reasons: f/u macroprolacinoma-conf Intake Note: Patient present today for macroprolactinoma follow up visit. 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 Prior workup showed elevated prolactin. In 02/2021 , nipples were tender . Had maamogram which showed breasts but no cancer . No breast D/C . He denies any symptoms of acromegaly or Page syndrome. 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 He denies any loss of vision or increased headaches. He denies any breast discharge. Workup for hypersecretion and hyposecretion of pituitary axis was nl He started cabergoline 0.5 mg2 X/wk with normalization of prolactin Energy better. He did see Dr. yeboah at [facility] who advised that he continue medical therapy. MRI the pituitary last yr shows the adenoma has been stable. Recent MRI 10/2022 showed stability in the size of the adenoma with possible invasion of the cavernous sinus but no effect on the optic chiasm No visual changes or headaches PFSH Medical History Hyperlipidemia Prolactinoma DM type 2 (diabetes mellitus, type 2) Pathologic high serum prolactin Anxiety Tobacco dependence Back pain Overweight Annual physical exam Hyperglycemia Surgical History Hx of tooth extraction Family History Father Diabetes Hypertension Mother Hypertension Breast cancer Maternal Uncle Lung cancer Sister Mental health disorder Diabetes Social History Housing: House Alcohol intake: current Alcohol intake frequency: a few times a week Alcohol type: beer Patient Tobacco Use Status: Current everyday Tobacco user Tobacco use type: Cigarette Cigarettes Per Day: 20 e-Cigarette/Vaping Use: Never Used service: No Current occupational status: employed Cognitive needs: No Hearing needs: No Vision needs: No Physical Exam Vital Signs: Last Vital Signs Pulse 72 11/30/23 07:58 BP 144/76 H 11/30/23 07:58 BMI result Body Mass Index 40.2 Const Other: No visual field loss by gross confrontation Assessment & Plan Assessment & Plan (1) Prolactinoma: Comment: f/u with endo Code(s): D35.2 - Benign neoplasm of pituitary gland Category: Medical Plan: This is a 68-year-old white male with a 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 He has persistent hypogonadism face of normal prolactin. His DEXA does not reveal osteoporosis The plan is to continue the cabergoline to 0.25 mg twice weekly. . Will check testosterone when available. If his testosterone does not recover in the future, we could use testosterone in combination with the dopamine agonist if patient desires. We had a long discussion regarding the benefits and risk of testosterone replacement and patient is not interested in this a currently. Will also repeat MRI of the pituitary and suggest follow-up with [facility] neuroendocrine Orders: Orders MR head/brain wo/w con Today D35.2 - Benign neoplasm of pituitary gland Coding Level of Care Code Est Pt Level 3 (93807) Diagnoses Prolactinoma D35.2
== END 2023-11-30 08:35 | disposition home or self-care (01) ==
PROVIDERS: PCP Internal Medicine; Visit Provider Internal Medicine Endocrinology, Diabetes & Metabolism
DX: D35.2 Benign neoplasm of pituitary gland (principal)
CPT/HCPCS: 99213

== ENCOUNTER → 2023-11-30 07:51 | Outpatient (BNVA) | payer MEDICARE, SELFPAY | PROVIDERS: PCP Internal Medicine; Visit Provider Internal Medicine Endocrinology, Diabetes & Metabolism | DX: D35.2 Benign neoplasm of pituitary gland (principal) | CPT/HCPCS: 99212 ==

== ENCOUNTER 2024-01-21 09:24 | Outpatient (REF) | payer MEDICARE, SELFPAY ==
--- NOTE | ~2024-01-21 | XR_ITS ---
EXAMINATION: XR ORBITAL FOREIGN BODY SCREENING, BILATERAL CLINICAL INFORMATION: Pre-MRI screening. COMPARISON: None available. TECHNIQUE: Three views of the bilateral orbits were obtained. FINDINGS: Three views demonstrate no evidence of radiopaque foreign bodies. XR/XR pre mri screening IMPRESSION: No metallic foreign body identified. Electronically signed by: Galdino Cooley MD 01/21/2024 12:[address] [facility]
[2024-01-21] MEDS: gadobutroL 7.5 ML VIAL IVPUSH (10:48)
== END 2024-01-21 09:25 | disposition home or self-care (01) ==
LOC: HO.MRI 09:24
PROVIDERS: PCP Internal Medicine; Visit Provider Internal Medicine Endocrinology, Diabetes & Metabolism
DX: D35.2 Benign neoplasm of pituitary gland (principal)
CPT/HCPCS: 70553; A9585

== ENCOUNTER 2024-04-25 12:44 | Outpatient (AMB) | payer MEDICARE, SELFPAY ==
--- NOTE | 2024-04-25 13:17 | AM.OFFWIN_ITS ---
Intake Vital Signs 04/25/24 13:18 Height 5 ft 10 in Weight 295 lb BMI 42.3 BP 122/80 Blood Pressure Location Lt brachial Position Sitting Pulse 75 Pulse Source Pulse Oximeter Pulse Oximetry (%) 98 Oxygen Delivery Method Room Air Intake Visit Reasons: EP RT knee pain from fall (no WC) Intake Note: Patient here for right knee pain that started the day of our last snow storm. Patient Tobacco Use Status: Current everyday Tobacco user Allergies gabapentin Adverse Reaction (Intermediate, Verified 04/25/24 13:20) Agitated Do you need a note to return to daycare/school/sports/work: No HPI HPI Comments History of Present Illness Details This is a 69 year old male with a past medical history of hypertension, hyperlipidemia, [id number] diabetes and benign pituitary tumor presenting for evaluation of right knee pain. Patient states he was planning last week and twisted his right knee when stepping onto the running board when exiting his truck. Patient did not fall to the ground as a result of this injury. He has been taking ibuprofen 800 mg twice daily without relief of his discomfort. Patient reports pain superior of his patella and along the lateral joint line. [facility] Medical History Hyperlipidemia Prolactinoma DM type 2 (diabetes mellitus, type 2) Pathologic high serum prolactin Anxiety Tobacco dependence Back pain Overweight Annual physical exam Hyperglycemia Surgical History Hx of tooth extraction Family History Father Diabetes Hypertension Mother Hypertension Breast cancer Maternal Uncle Lung cancer Sister Mental health disorder Diabetes Social History Housing: House Alcohol intake: current Alcohol intake frequency: a few times a week Alcohol type: beer Patient Tobacco Use Status: Current everyday Tobacco user Tobacco use type: Cigarette Cigarettes Per Day: 20 e-Cigarette/Vaping Use: Never Used service: No Current occupational status: employed Cognitive needs: No Hearing needs: No Vision needs: No Review of Systems Const All systems reviewed & are unremarkable except as noted in HPI and below Eyes Reports no additional complaints ENT Reports no additional complaints Card Reports no additional complaints Resp Reports no additional complaints GI Reports no additional complaints Reports no additional complaints Musc Reports arthralgias (right knee) Skin/Breast Reports system reviewed and no additional complaints, except as documented Neuro Reports no additional complaints Endo Reports no additional complaints Jonah/Lymph Reports no additional complaints Physical Exam Vital Signs: Last Vital Signs Pulse 75 04/25/24 13:18 BP 122/80 04/25/24 13:18 Pulse Ox 98 04/25/24 13:18 Oxygen Delivery Method Room Air 04/25/24 13:18 BMI result Body Mass Index 42.3 Const General: cooperative, comfortable, alert, awake and Physically active Nutritional Appearance: obese Orientation/consciousness: patient oriented x3 Limitations: no limitations Skin General skin exam: no rashes or lesions noted Neuro General: patient oriented x3 Extrem Other: There is mild edema of the right anterior knee without erythema or warmth to touch. There is pain to palpation of the quadriceps tendon, no clinical evidence of a joint effusion and no right calf pain. Mild discomfort with varus stress of the right knee, no pain to palpation along the right knee joint line. Psych Appearance: grossly normal Mental Status: mental status grossly normal Insight: Good insight present (Psych) Judgement: Good judgement present (Psych) Assessment & Plan Assessment & Plan (1) Right knee pain: Comment: Given this patient's mechanism of injury, imaging is deferred at this time. Patient will be sized with a knee brace for immobilization and stabilization of this right knee strain. Code(s): M25.561 - Pain in right knee Qualifiers: Chronicity: unspecified Qualified Code(s): M25.561 - Pain in right knee Plan: Wear knee immobilizer daily for stabilization and use Naprosyn twice daily for the next 10 days to 2 weeks. Patient will follow up with his primary care provider if symptoms persist. Medications: New naproxen (EC-Naprosyn) 500 mg PO Q12H 30 tabs 0RF Coding Level of Care Code Est Pt Level 3 (39933) Diagnoses Right knee pain, unspecified chronicity M25.561 Chronicity: unspecified Time Spent (min) 20
[2024-04-25 13:18] VITALS: BP 122/80; PULSE 75; O2SAT 98; BMI 42.3
== END 2024-04-25 14:10 | disposition home or self-care (01) ==
PROVIDERS: PCP Internal Medicine; Visit Provider Physician Assistant
DX: M25.561 Pain in right knee (principal)

== ENCOUNTER → 2024-04-25 12:44 | Outpatient (BNVA) | payer MEDICARE, SELFPAY | PROVIDERS: PCP Internal Medicine; Visit Provider Physician Assistant | DX: M25.561 Pain in right knee (principal) | CPT/HCPCS: 99212 ==

== ENCOUNTER 2024-05-29 06:44 | Outpatient (REF) | payer MEDICARE, SELFPAY ==
[2024-05-29 11:27] LABS: Alanine Aminotransferase 17 U/L (0-40); Albumin Level 4.2 g/dL (3.5-5.0); Alkaline Phosphatase 59 U/L (39-117); Aspartate Amino Transferase 17 U/L (5-37); Bilirubin Direct 0.1 mg/dL (0.0-0.5); Bilirubin Total 0.4 mg/dL (0.0-1.0); Total Protein 6.8 g/dL (6.5-8.0)
[2024-05-30 03:13] LABS: Prolactin 11.4 ng/mL (2.0-18.0)
[2024-06-05 14:04] LABS: Testosterone, Free 7.3 pg/mL (35.0-155.0); Testosterone, Total 97 ng/dL (250-1100)
== END 2024-05-29 06:45 | disposition home or self-care (01) ==
LOC: HO.HMGCLDS 06:44
PROVIDERS: PCP Internal Medicine; Visit Provider Internal Medicine Endocrinology, Diabetes & Metabolism
DX: R79.89 Other specified abnormal findings of blood chemistry (principal)
CPT/HCPCS: 36415; 80076; 84146; 84402; 84403

== ENCOUNTER 2024-05-30 07:45 | Outpatient (AMB) | payer MEDICARE, SELFPAY ==
--- NOTE | 2024-05-30 08:04 | MHC.OFFVIS ---
Vital Signs 05/30/24 08:08 Height 5 ft 10 in Weight 289 lb 14.526 oz BMI 41.6 BP 122/70 Blood Pressure Location Lt brachial Position Sitting Pulse 52 Pulse Source Pulse Oximeter Pulse Oximetry (%) 98 Oxygen Delivery Method Room Air Intake Visit Reasons: macroprolacinoma Intake Note: Patient present today for macroprolactinoma follow up visit. 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 Prior workup showed elevated prolactin. In 02/2021 , nipples were tender . Had maamogram which showed breasts but no cancer . No breast D/C . He denies any symptoms of acromegaly or Page syndrome. 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 He denies any loss of vision or increased headaches. He denies any breast discharge. Workup for hypersecretion and hyposecretion of pituitary axis was nl He started cabergoline 0.25 mg 2 X/wk with normalization of prolactin Energy better. He did see Dr. yeboah at [facility] who advised that he continue medical therapy. MRI the pituitary this yr shows the adenoma has been stable with no effect on the optic chiasm No visual changes or headaches The patient is a 69-year-old male presenting with follow-up concerns for pituitary adenoma and hyperprolactinemia. His pituitary adenoma was evaluated via MRI, with the last scan conducted in December 2023 showing a mass size of 1.2 cm. The patient denies any change in visual cabezas or onset of new symptoms, and prolactin levels have normalized. A routine review of diabetes management and recent dietary habits provided insight into an A1c of 6.6%, reflecting moderate glycemic control despite some weight gain. - Labs: Prolactin levels within normal limits, Testosterone pending, previous testosterone reading at 87 ng/dL - Imaging: MRI conducted in December 2023 showing a stable pituitary mass at 1.2 cm ON LICENSE OF [facility] Medical History Hyperlipidemia Prolactinoma DM type 2 (diabetes mellitus, type 2) Pathologic high serum prolactin Anxiety Tobacco dependence Back pain Overweight Annual physical exam Hyperglycemia Surgical History Hx of tooth extraction Family History Father Diabetes Hypertension Mother Hypertension Breast cancer Maternal Uncle Lung cancer Sister Mental health disorder Diabetes Social History Housing: House Alcohol intake: current Alcohol intake frequency: a few times a week Alcohol type: beer Patient Tobacco Use Status: Current everyday Tobacco user Tobacco use type: Cigarette Cigarettes Per Day: 20 e-Cigarette/Vaping Use: Never Used service: No Current occupational status: employed Cognitive needs: No Hearing needs: No Vision needs: No Physical Exam Vital Signs: Last Vital Signs Pulse 52 05/30/24 08:08 BP 122/70 05/30/24 08:08 Pulse Ox 98 05/30/24 08:08 Oxygen Delivery Method Room Air 05/30/24 08:08 BMI result Body Mass Index 41.6 Const Other: No visual field loss by gross confrontation Assessment & Plan Assessment & Plan (1) Prolactinoma: Comment: f/u with endo Code(s): D35.2 - Benign neoplasm of pituitary gland Category: Medical Plan: This is a 69-year-old white male with a 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 He has persistent hypogonadism face of normal prolactin. His DEXA does not reveal osteoporosis The plan is to continue the cabergoline to 0.25 mg twice weekly. . Will check testosterone when available. If his testosterone does not recover in the future, we could use testosterone in combination with the dopamine agonist if patient desires. We had a long discussion regarding the benefits and risk of testosterone replacement and patient is not interested in this a currently. Should follow-up with [facility] neuroendocrine 1. Pituitary Adenoma with Hyperprolactinemia: Continue to monitor prolactin levels and assess pituitary stability regularly, with watchful waiting for further pituitary growth. 4. Testosterone Deficiency: No action at this time. Monitor for any changes in symptomatology that might warrant reevaluation. The patient had an opportunity to ask questions regarding treatment plan. The patient expressed understanding and agreement with the above treatment plan. I discussed the patient's current management plan for his pituitary adenoma with him, emphasizing the importance of periodical MRI studies to ensure the mass remains stable. No modification to prolactin suppression therapies is advised due to the mass size. The concern about testosterone replacement was acknowledged, weighing potential benefits against the risks including the possibility of uncovering any silent malignancies. - Continue regular monitoring for pituitary adenoma with scheduled MRIs. - - Report any changes in visual acuity or new neurological symptoms immediately. - Patient was informed and verbally consented to the use of an ambient scribe for clinic note documentation during this visit. Orders: Orders Prolactin 05/29/24 R79.89 - Other specified abnormal findings of blood chemistry Testosterone, Free/Total 05/29/24 R79.89 - Other specified abnormal findings of blood chemistry Liver Panel 05/29/24 R79.89 - Other specified abnormal findings of blood chemistry Coding Level of Care Code Est Pt Level 3 (15969) Diagnoses Prolactinoma D35.2
[2024-05-30 08:08] VITALS: BP 122/70; PULSE 52; O2SAT 98; BMI 41.6
== END 2024-05-30 08:32 | disposition home or self-care (01) ==
LOC: HO.ENCR 07:45
PROVIDERS: PCP Internal Medicine; Visit Provider Internal Medicine Endocrinology, Diabetes & Metabolism
DX: D35.2 Benign neoplasm of pituitary gland (principal)
CPT/HCPCS: 99213

== ENCOUNTER → 2024-05-30 07:45 | Outpatient (BNVA) | payer MEDICARE, SELFPAY | PROVIDERS: PCP Internal Medicine; Visit Provider Internal Medicine Endocrinology, Diabetes & Metabolism | DX: D35.2 Benign neoplasm of pituitary gland (principal) | CPT/HCPCS: 99212 ==

== ENCOUNTER 2024-06-23 07:55 | Outpatient (RCR) | payer MEDICARE, SELFPAY | END 2024-08-10 12:11 | disposition home or self-care (01) | LOC: HO.WCC 07:55 | PROVIDERS: Visit Provider Surgery | DX: I87.331 Chronic venous hypertension (idiopathic) with ulcer and inflammation of right lower extremity (principal); L97.812 Non-pressure chronic ulcer of other part of right lower leg with fat layer exposed | CPT/HCPCS: 11042; 97597; 99212; 99213 ==

== ENCOUNTER 2024-11-06 08:00 | Outpatient (AMB) | payer MEDICARE, SELFPAY ==
--- OUTSIDE RECORDS SUMMARY | 2024-11-06 08:02 | XMS_ITS | Encounter Summary ---
Author Organization [facility] Address [address] [place] [address] Phone Care Team Providers Care Epilepsy Physician Name Role Phone Unknown, Unknown Primary Care Provider Tawny Ayon MD Primary Care Provider [phone] Encounter Details Date Type Department Care Team (Latest Contact Info) Description 04/17/2021 Transcribe Orders Virtual Department 30 [place] [address] Soraya Almodovar PATHOLOGY SECRETARY [address] [place] [phone] [email or web address] Radiculopathy, thoracic region (Primary Dx) Social History Tobacco Use Types Packs/Day Years Used Date Smoking Tobacco: Never Assessed Sex and Gender Information Value Date Recorded Sex Assigned at Not on file Legal Sex Male 7:55 AM EST Gender Identity Not on file Sexual Orientation Not on file documented as of this encounter Plan of Treatment Not on file documented as of this encounter Visit Diagnoses Diagnosis Radiculopathy, thoracic region- Primary Thoracic or lumbosacral neuritis or radiculitis, unspecified documented in this encounter Care Teams Epilepsy Physician Relationship Specialty Start Date End Date Unknown, Unknown, MD PCP - General 04/24/21 04/12/22 Tawny Rodas MD [address] [place] [address] PCP - General Internal Medicine 04/13/22 documented as of this encounter Additional Source Comments The information contained in this document represents components of the legal health record. It is not the complete legal health record.[facility]
--- OUTSIDE RECORDS SUMMARY | 2024-11-06 08:02 | XMS_ITS | Clinical Summary ---
Author Organization [facility] Address [address] [facility] [address] [place] [address] Phone Care Team Providers Care Liberal Arts Dean Name Role Phone Tawny Rodas MD Primary Care Provider [phone] Medications cabergoline (DOSTINEX) 0.5 mg tablet Take 0.5 mg by mouth. Takes 1.5 mg twice a week 01/14/2022 Active metFORMIN (GLUCOPHAGE) 850 MG tablet Take 850 mg by mouth 2 (two) times a day. 02/11/2022 Active pravastatin (PRAVACHOL) 40 MG tablet Take 40 mg by mouth daily. 01/22/2022 Active ibuprofen (ADVIL,MOTRIN) 800 MG tablet Take 800 mg by mouth 2 (two) times a day. Active Social History Tobacco Use Types Packs/Day Years Used Date Smoking Tobacco: Never Assessed Education Answer Date Recorded Are you interested in more education? Not on jelena e 06/20/2022 Are you concerned about learning? Not on file 06/20/2022 No 06/20/2022 No 06/20/2022 Digital Access Answer Date Recorded No 07/19/2022 No 07/19/2022 No 07/19/2022 Reliable internet access at home? Not on file 07/19/2022 Device with a working camera? Not on file Sex and Gender Information Value Date Recorded Sex Assigned at Not on file Legal Sex Male 7:55 AM EST Gender Identity Not on file Sexual Orientation Not on file Plan of Treatment Health Maintenance Due Date Last Done Comments Adult Td,Tdap Booster 1955 CREATININE LEVEL 1955 LIPID PANEL 1955 DEPRESSION SCREENING 1967 SMOKING Hx and SMOKELESS TOB ACCO SCREENING 02/29/1968 HEPATITIS C SCREENING 1973 COLOGUARD 02/29/2000 COLONOSCOPY 02/29/2000 COLORECTAL CANCER SCREENING 02/29/2000 FIT TEST 02/29/2000 FOBT 02/29/2000 SIGMOIDOSCOPY 02/29/2000 VIRTUAL COLONOSCOPY 02/29/2000 PNEUMOCOCCAL VACCINES (50+ y ears) (1 of 1 - PCV) 2005 ZOSTER VACCINES (1 of 2) 2005 INFLUENZA VACCINE (#1) 2024 COVID-19 VACCINE (1 - 2023-2 5 season) 2024 RSV VACCINE (1 - 1-dose 75+ series) 2030 HEPATITIS A VACCINES Aged Out No long er eligible based on patient's age to complete this topic HIB VACCINES Aged Out No longer eligi ble based on patient's age to complete this topic MENINGOCOCCAL VACCINES (ACWY) Aged Out No longer eligible based on patient's age to complete this topic MENINGOCOCCAL VACCINES (B) Aged Out N o longer eligible based on patient's age to complete this topic Medical Devices Not on file Insurance [facility] MEDICARE HMO [place] [address] [place] [address] MEDICARE HMO [place] [address] [place] [address] MEDICARE HMO [place] [address] [place] [address] MEDICARE HMO [place] [address] [place] [address] MEDICARE HMO BLUE REPLACEMENT Care Teams Liberal Arts Dean Relationship Specialty Start Date End Date Tawny Rodas MD [address] [place] [address] PCP - General Internal Medicine 04/13/22 Additional Source Comments The information contained in this document represents components of the legal health record. It is not the complete legal health record.[facility]
--- NOTE | 2024-11-06 08:13 | A.OFFPC_ITS ---
Vital Signs 11/06/24 08:14 Height 5 ft 10 in Weight 280 lb BMI 40.2 BP 124/74 Blood Pressure Location Lt brachial Position Sitting Respiration 18 Pulse 72 Pulse Source Pulse Oximeter Temp 98.2 F Temp Source Oral Pulse Oximetry (%) 100 Oxygen Delivery Method Room Air Intake Visit Reasons: PE Intake Note: Pt is here today for PE. Allergies gabapentin Adverse Reaction (Intermediate, Verified 11/06/24 08:14) Agitated Medication List - Last Reconciled 11/06/24 by Tawny Rodas MD cabergoline 0.25 mg (1/2 x 0.5 mg) PO 2XW ibuprofen 800 mg PO BID lancets Test blood sugars 2-3 times per day metformin 850 mg PO BID naproxen (EC-Naprosyn) 500 mg PO Q12H olmesartan 5 mg PO DAILY OneTouch Verio test strips (blood sugar diagnostic) Test blood sugar once a day NS pravastatin 40 mg PO DAILY Tobacco use date assessed: 11/06/24 Fall risk assessment: No Falls in past year Last assessed Fall Risk: 11/06/24 Dental Screening Dental Screen Date: 11/06/24 Did you have a dental visit in the last 12 months?: No Did you have a dental problem in the last 6 months where you did not have access to dental care?: No Was dental information given to patient?: Patient declined HPI PE HPI Details Pt presents for PE. He c/o bilateral knee pain when walking and standing for long time ( at work patient has [employer] business) for a few months. Patient has been decreasing caloric intake, increasing physical activity but has not been monitoring his fasting blood glucose. [facility] Medical History (Updated 11/06/24 @ 09:06 by Tawny Rodas MD) Colon cancer screening Hx of cataract Hyperlipidemia Prolactinoma DM type 2 (diabetes mellitus, type 2) Pathologic high serum prolactin Anxiety Tobacco dependence Back pain Overweight Annual physical exam Hyperglycemia Surgical History Hx of tooth extraction Family History Father Diabetes Hypertension Mother Hypertension Breast cancer Maternal Uncle Lung cancer Sister Mental health disorder Diabetes Social History Housing: House Alcohol intake: current Alcohol intake frequency: a few times a week Alcohol type: beer Patient Tobacco Use Status: Current everyday Tobacco user Tobacco use type: Cigarette Cigarettes Per Day: 20 e-Cigarette/Vaping Use: Never Used service: No Current occupational status: employed Cognitive needs: No Hearing needs: No Vision needs: No Questionnaire PHQ-9 Over the last 2 weeks, how often have you been bothered by any of the following problems? 1. Little interest or pleasure in doing things: not at all 2. Feeling down, depressed, or hopeless: not at all 3. Trouble falling or staying asleep, or sleeping too much: not at all 4. Feeling tired or having little energy: not at all 5. Poor appetite or overeating: not at all 6. Feeling bad about yourself - or that you are a failure or have let yourself or your family down: not at all 7. Trouble concentrating on things, such as reading the newspaper or watching television: not at all 8. Moving or speaking so slowly that other people could have noticed. Or the opposite - being so fidgety or restless that you have been moving around a lot more than usual: not at all 9. Thoughts that you would be better off or of hurting yourself in some way: not at all Total score: 0 Depression Screening Interpretation: Negative Depression Screening Done: Yes 78666 - PHQ-9 Billing: Yes Source: Developed by Drs. Kevin Hutchins, Antonia Woodall, Miguel Angel Phelps and colleagues, with an educational wili from [employer]. Thrive Questionnaire Date Thrive assessed: 11/06/24 I am a: Patient What is your living situation today?: I have a steady place to live Within the past 12 months, did the food you bought not last and you didn't have the money to get more?: I choose not to answer this question Within the past 12 months, did you worry whether your food would run out before you got money to buy more?: Never true Do you have trouble paying for medicines?: No Do you have trouble getting transportation to medical appointments?: No Do you have trouble paying your heating and electricity bill?: No Do you have trouble taking care of your child, family member or friend?: No Do you have trouble with day-to-day activities such as bathing, preparing meals, shopping, managing finances, etc.?: No Are you currently unemployed and looking for a job?: No Are you interested in more education?: No Please select the resources that you would like help with: None Currently or been in a relationship where the following occur: No concerns reported THRIVE Score: 0 AUDIT C Alcohol Use Questionnaire (AUDIT-C) 1. How often do you have a drink containing alcohol?: 2-4 times a month 2. How many drinks containing alcohol do you have on a typical day when you are drinking?: 1 or 2 3. How often do you have six or more drinks on one occasion?: Never Total Score: 2 ALCIRA-7 AMB Questionnaire ALCIRA-7 Date ALCIRA - 7 assessed: 11/06/24 Feeling nervous, anxious, or on edge: 3 = Nearly every day Not being able to stop or control worryin = Several days Worrying too much about different things: 1 = Several days Trouble relaxin = More than half the days Being so restless that it is hard to sit still: 2 = More than half the days Becoming easily annoyed or irritable: 2 = More than half the days Feeling afraid as if something awful might happen: 1 = Several days Total ALCIRA-7 score (0-4 normal; 5-9 mild; 10-14 moderate; 15-21 severe): 12 Source: Developed by Drs. Kevin Hutchins, Antonia Woodall, Miguel Angel Phelps and colleagues, with an educational wili from [employer]. ALCIRA-7 Assessment Billing ALCIRA-7 Assessment Tool: ALCIRA-7 Assessment 81000 Review of Systems Const All systems reviewed & are unremarkable except as noted in HPI and below Eyes Reports no additional complaints ENT Reports no additional complaints Card Reports no additional complaints Resp Reports no additional complaints GI Reports no additional complaints Reports no additional complaints Physical exam (Primary Care) Vital Signs: Last Vital Signs Temp 98.2 F 11/06/24 08:14 Pulse 72 11/06/24 08:14 Resp 18 11/06/24 08:14 BP 124/74 11/06/24 08:14 Pulse Ox 100 11/06/24 08:14 Oxygen Delivery Method Room Air 11/06/24 08:14 BMI result Body Mass Index 40.2 Tobacco/Smoking Status: Tobacco use Status Tobacco use date assessed 11/06/24 11/06/24 08:21 Patient Tobacco Use Status Current everyday Tobacco 11/06/24 08:21 Tobacco use type Cigarette 11/06/24 08:21 e-Cigarette/Vaping Use Never Used 11/06/24 08:21 PHQ-9: PHQ-9 Score PHQ-9: Total score 0 11/06/24 08:21 Depression Screening Interpretation: Negative Thrive Assessment: Date of Thrive Assessment Date Thrive assessed 11/06/24 11/06/24 08:21 Currently or been in a relationship where the following occur: No concerns reported Const General: no acute distress HENMT Head: Yes normal to inspection Ears: hearing grossly normal bilaterally Face and sinus: Yes normal facial exam Mouth: Normal oral and palatal mucosa present Throat: Yes posterior oropharynx normal Eyes General: appearance normal, both eyes and all related structures Neck Neck: Yes no lymphadenopathy and Yes supple Resp Effort & Inspection: normal respiratory effort Auscultation: clear to auscultation bilaterally Cardio Rhythm: regular rhythm Heart sounds: S1 normal heart sound present and S2 normal heart sound present GI Inspection: Yes normal to inspection Palpation (GI): Soft to palpation Percussion: Yes normal to percussion Auscultation: normal bowel sounds Extrem Other: 2+ nonpitting edema bilaterally chronic venous stasis on lower extremities, diabetic foot exam skin is intact monofilament and vibration sensation intact bilaterally Coding Level of Care Code Est Pt Prev Care >65y(46121) Diagnoses Knee pain, bilateral M25.561; M25.562 DM type 2 (diabetes mellitus, type 2) E11.9 Hyperlipidemia E78.5 HTN (hypertension) I10 Colon cancer screening Z12.11 Prolactinoma D35.2 Tobacco dependence F17.200 Annual physical exam Z00.00 Additional Codes ALCIRA-7 Assessment Billing - ALCIRA-7 Assessment Tool: ALCIRA-7 Assessment 17914 ([id number]) PHQ-9 - 93717 - PHQ-9 Billing: Yes ([id number]) Assessment & Plan Assessment & Plan (1) Knee pain, bilateral: Comment: X-rays of both knees March 2022 moderate to advanced osteoarthritis in both knees Code(s): M25.561 - Pain in right knee; M25.562 - Pain in left knee Category: Medical Plan: Patient was offered ortho and PT referral but he is planning to start working out and lose weight (2) DM type 2 (diabetes mellitus, type 2): Code(s): E11.9 - Type 2 diabetes mellitus without complications Category: Medical Plan: A1c is 6.9, ADA diet increase exercise weight loss discussed with the patient Mounjaro 2.5 will be started in addition to metformin. Patient will follow-up in 1 month. He was advised to start monitoring his blood glucose regularly (3) Hyperlipidemia: Code(s): E78.5 - Hyperlipidemia, unspecified Category: Medical Plan: Continue statin return for fasting blood work (4) HTN (hypertension): Code(s): I10 - Essential (primary) hypertension Category: Medical Plan: Continue olmesartan (5) Colon cancer screening: Comment: Negative Cologuard March 2021, Cologuard ordered 10/2024 Code(s): Z12.11 - Encounter for screening for malignant neoplasm of colon Category: Medical Plan: Cologuard ordered (6) Prolactinoma: Comment: f/u with endo Code(s): D35.2 - Benign neoplasm of pituitary gland Category: Medical Plan: Follow-up with endocrinology (7) Tobacco dependence: Comment: Patient refuse lung cancer CT screening 03/16, 03/17 Code(s): F17.200 - Nicotine dependence, unspecified, uncomplicated Category: Medical Plan: Tobacco quitting discussed with the patient patient refused lung cancer screening (8) Annual physical exam: Code(s): Z00.00 - Encounter for general adult medical examination without abnormal findings Category: Medical Plan: Well-balanced diet regular physical activity weight loss discussed with the patient. Patient refused colonoscopy, Cologuard is ordered Orders: Orders Comprehensive Met. Panel Today E11.9 - Type 2 diabetes mellitus without complications, E66.01 - Morbid (severe) obesity due to excess calories, E78.5 - Hyperlipidemia, unspecified, I10 - Essential (primary) hypertension, Z68.43 - Body mass index [BMI] 50.0-59.9, adult Complete Blood Count Auto Diff Today E11.9 - Type 2 diabetes mellitus without complications, E66.01 - Morbid (severe) obesity due to excess calories, E78.5 - Hyperlipidemia, unspecified, I10 - Essential (primary) hypertension, Z68.43 - Body mass index [BMI] 50.0-59.9, adult Lipid Panel Today E11.9 - Type 2 diabetes mellitus without complications, E66.01 - Morbid (severe) obesity due to excess calories, E78.5 - Hyperlipidemia, unspecified, I10 - Essential (primary) hypertension, Z68.43 - Body mass index [BMI] 50.0-59.9, adult Microalbumin, Random (w Creat) Today E11.9 - Type 2 diabetes mellitus without complications, E66.01 - Morbid (severe) obesity due to excess calories, E78.5 - Hyperlipidemia, unspecified, I10 - Essential (primary) hypertension, Z68.43 - Body mass index [BMI] 50.0-59.9, adult AMB Hemoglobin A1c Today Z13.9 - Encounter for screening, unspecified Referrals Orthopedics Referral M25.561 - Pain in right knee, M25.562 - Pain in left knee Cologuard Test Z12.11 - Encounter for screening for malignant neoplasm of colon, Z12.12 - Encounter for screening for malignant neoplasm of rectum Medications: New Mounjaro (tirzepatide) 2.5 mg (0.5 mL) subcut QWEEK 2 mL 1RF NS
[2024-11-06 08:14] VITALS: BP 124/74; PULSE 72; RESP 18; TEMP 36.8; O2SAT 100; BMI 40.2
== END 2024-11-06 08:59 | disposition home or self-care (01) ==
LOC: HO.HMCC 08:00
PROVIDERS: PCP Internal Medicine; Visit Provider Internal Medicine
DX: Z00.00 Encounter for general adult medical examination without abnormal findings (principal); E11.69 Type 2 diabetes mellitus with other specified complication; D35.2 Benign neoplasm of pituitary gland; M25.561 Pain in right knee; E78.5 Hyperlipidemia, unspecified; M25.562 Pain in left knee; I10 Essential (primary) hypertension; Z12.11 Encounter for screening for malignant neoplasm of colon; F17.200 Nicotine dependence, unspecified, uncomplicated

== ENCOUNTER → 2024-11-06 08:00 | Outpatient (BNVA) | payer MEDICARE, SELFPAY | PROVIDERS: PCP Internal Medicine; Visit Provider Internal Medicine | DX: Z00.00 Encounter for general adult medical examination without abnormal findings (principal); M25.561 Pain in right knee; M25.562 Pain in left knee; E11.9 Type 2 diabetes mellitus without complications; E78.5 Hyperlipidemia, unspecified; I10 Essential (primary) hypertension; F17.210 Nicotine dependence, cigarettes, uncomplicated; D35.2 Benign neoplasm of pituitary gland | CPT/HCPCS: 96127; 99397 ==

== ENCOUNTER 2024-11-13 07:17 | Outpatient (REF) | payer MEDICARE, SELFPAY ==
--- OUTSIDE RECORDS SUMMARY | 2024-11-13 07:22 | XMS_ITS | Clinical Summary ---
Author Organization [facility] Address [address] [facility] [address] [place] [address] Phone Care Team Providers Care Brusher Name Role Phone Tawny Rodas MD Primary Care Provider [phone] Medications cabergoline (DOSTINEX) 0.5 mg tablet Take [...] topic Medical Devices Not on file Insurance [facility] MEDICARE HMO BLUE REPLACEMENT [place] [address] [address] MEDICARE HMO BLUE [place] [address] [place] [address] [address]IC[address] HMO [address] [place] [place] [address] [address] [address] [place] [address] MEDICARE HMO BLUE REPLACEMENT Care Teams Brusher Relationship Specialty Start Date End Date Tawny Rodas MD [address] [facility] [address] PCP - General Internal Medicine 04/13/22 Additional Source Comments The information contained in this document represents components of the legal health record. It is not the complete legal health record.[facility]
--- OUTSIDE RECORDS SUMMARY | 2024-11-13 07:22 | XMS_ITS | Encounter Summary ---
Author Organization [facility] Address [email or web address] [place] [address] Phone Care Team Providers Care Regional Transportation Manager Name Role Phone Unknown, Unknown Primary Care Provider Tawny Ayon MD Primary Care Provider [phone] Encounter Details Date Type Department Care Team (Latest Contact Info) Description 04/17/2021 Transcribe Orders Virtual Department 30 [place] [address] Soraya Almodovar DIRECT MARKETING ANALYST [address] [place] [phone] [email or web address] Radiculopathy, thoracic region (Primary Dx) Social History [...] unspecified documented in this encounter Care Teams Regional Transportation Manager Relationship Specialty Start Date End Date Unknown, Unknown, MD PCP - General 04/24/21 04/12/22 Tawny Rodas MD [address] [facility] [place] [address] PCP - General Internal Medicine 04/13/22 documented as of this encounter Additional Source Comments The information contained in this document represents components of the legal health record. It is not the complete legal health record.[facility]
[2024-11-13 10:26] LABS: MANUAL DIFF FLAG NO
[2024-11-13 10:34] LABS: Hematocrit 36.8 % (42.0-52.0); Hemoglobin 12.2 g/dl (14.0-18.0); Imm Gran Abs Auto 0.02 X10*3/uL (0.00-0.03); Imm Gran Pct Auto 0.2 % (0.0-0.4); Lymphocytes Absolute Auto 2.6 X10*3/uL (1.2-4.9); Mean Corpuscular HGB Conc 33.2 g/dl (31.0-36.0); Mean Corpuscular Hemoglobin 29.1 pg (27.0-33.0); Mean Corpuscular Volume 87.8 fL (80.0-98.0); NRBC Abs Auto 0.000 X10*3/uL (0.0-0.012); NRBC Pct Auto 0.0 /100WBC (0.0-0.2); Platelet Count 256 X10*3/uL (160-400); Red Blood Count 4.19 X10*6/uL (4.60-5.80); White Blood Count 9.9 X10*3/uL (4.8-10.8)
[2024-11-13 10:48] LABS: Alanine Aminotransferase 15 U/L (0-40); Albumin Level 4.3 g/dL (3.5-5.0); Alkaline Phosphatase 66 U/L (39-117); Anion Gap 10 (12-20); Aspartate Amino Transferase 19 U/L (5-37); Blood Urea Nitrogen 20 mg/dL (9-16); Calcium 9.6 mg/dL (8.4-10.2); Carbon Dioxide 27 mmol/L (22-29); Chloride 108 mmol/L (96-108); Cholesterol 159 mg/dL (<200); Estimated Glomerular Filt Rate > 60; HDL Cholesterol 45 mg/dL (>40); Potassium 4.6 mmol/L (3.3-5.1); Sodium 140 mmol/L (135-145); Total Protein 6.8 g/dL (6.5-8.0); Triglycerides 96 mg/dL (<150)
[2024-11-13 11:21] LABS: Microalbum/Creatinine Ratio Ur 9.9 ug/mg cr (<30)
== END 2024-11-13 07:18 | disposition home or self-care (01) ==
LOC: HO.HMGCLDS 07:17
PROVIDERS: PCP Internal Medicine; Visit Provider Internal Medicine
DX: I10 Essential (primary) hypertension (principal); E11.9 Type 2 diabetes mellitus without complications; E66.01 Morbid (severe) obesity due to excess calories; E78.5 Hyperlipidemia, unspecified; Z68.43 Body mass index [BMI] 50.0-59.9, adult
CPT/HCPCS: 36415; 80053; 80061; 82043; 82570; 85025

== ENCOUNTER 2024-12-28 07:40 | Outpatient (AMB) | payer MEDICARE, SELFPAY ==
--- OUTSIDE RECORDS SUMMARY | 2024-12-28 07:44 | XMS_ITS | Encounter Summary ---
Author Organization [facility] Address [address] [facility] [address] [place] [address] Phone Care Team Providers Care Coordinating Producer Name Role Phone Unknown, Unknown Primary Care Provider Tawny Ayon MD Primary Care Provider [phone] Encounter Details Date Type Department Care Team (Latest Contact Info) Description 04/17/2021 Transcribe Orders Virtual Department 30 [place] [address] Soraya Almodovar STUDIO OPERATOR [address] [place] [phone] [email or web address] Radiculopathy, thoracic region (Primary Dx) Social History [...] unspecified documented in this encounter Care Teams Coordinating Producer Relationship Specialty Start Date End Date Unknown, Unknown, MD PCP - General 04/24/21 04/12/22 Tawny Rodas MD [facility] [place] [address] PCP - General Internal Medicine 04/13/22 documented as of this encounter Additional Source Comments The information contained in this document represents components of the legal health record. It is not the complete legal health record.[facility]
--- OUTSIDE RECORDS SUMMARY | 2024-12-28 07:44 | XMS_ITS | Clinical Summary ---
Author Organization [facility] Address [address] [facility] [address] [place] [address] Phone Care Team Providers Care Infant Teacher Name Role Phone Tawny Rodas MD Primary Care Provider Medications cabergoline (DOSTINEX) 0.5 mg tablet Take [...] 2005 INFLUENZA VACCINE (#1) 2024 COVID-19 VACCINE ( - 2024-2 6 season) 2024 RSV VACCINE (1 - 1-dose [...] topic Medical Devices Not on file Insurance [facility] MEDICARE HMO BLUE REPLACEMENT [address] [place] [address] MEDICARE HMO BLUE REPLACEMENT [address] [address] MEDICARE HMO BLUE REPLACEMENT [address] [address] MEDICARE HMO BLUE REPLACEMENT [place] [address] MEDICARE HMO BLUE REPLACEMENT Care Teams Infant Teacher Relationship Specialty Start Date End Date Tawny Rodas [place] [address] PCP - General Internal Medicine 04/13/22 Additional Source Comments The information contained in this document represents components of the legal health record. It is not the complete legal health record.[facility]
[2024-12-28 07:58] VITALS: BMI 39.0
--- NOTE | 2024-12-28 07:58 | MHC.OFFVIS ---
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 He describes his pains as sharp and severe in nature. Most of the pain is along the medial aspects of his knees. He has failed the last 3 months of conservative treatment which has included wearing a knee brace, ibuprofen, Tylenol and a home exercise program. At this point his bilateral knee pains are interfering with his activities of daily living and his ability to sleep well through the night. The patient is concerned about having cortisone injections because he heard that the cortisone 10 destroyed cartilage . He wishes to hold off on total knee replacement surgery for as long as possible. Allergies gabapentin Adverse Reaction (Intermediate, Verified 12/28/24 08:02) Agitated Medication List - Last Reviewed 12/28/24 by Gina Montalvo, KIMBERLYN cabergoline 0.25 mg (1/2 x 0.5 mg) PO 2XW ibuprofen 800 mg PO BID lancets Test blood sugars 2-3 times per day metformin 850 mg PO BID olmesartan 5 mg PO DAILY OneTouch Verio test strips (blood sugar diagnostic) Test blood sugar once a day NS pravastatin 40 mg PO DAILY [facility] Medical History (Updated 12/28/24 @ 08:17 by Easton Kirby MD) Colon cancer screening Hx of cataract Hyperlipidemia Prolactinoma DM type 2 (diabetes mellitus, type 2) Pathologic high serum prolactin Anxiety Tobacco dependence Back pain Overweight Annual physical exam Hyperglycemia Surgical History Hx of tooth extraction Family History Father Diabetes Hypertension Mother Hypertension Breast cancer Maternal Uncle Lung cancer Sister Mental health disorder Diabetes Social History Housing: House Alcohol intake: current Alcohol intake frequency: a few times a week Alcohol type: beer Patient Tobacco Use Status: Current everyday Tobacco user Tobacco use type: Cigarette Cigarettes Per Day: 20 e-Cigarette/Vaping Use: Never Used service: No Current occupational status: employed Cognitive needs: No Hearing needs: No Vision needs: No Physical Exam Vital Signs: BMI result Body Mass Index 39.0 Const Other: Well-nourished well-developed very friendly male awake alert and oriented x3 in no acute distress Extrem Other: Bilateral knee examination shows minimal effusions, palpable crepitus with range of motion, pain with range of motion, no instability Results Reviewed Results Reviewed: X-rays of the patient's bilateral knees taken today show joint space narrowing, subchondral sclerosis, no acute bony abnormalities Assessment & Plan Assessment & Plan (1) Osteoarthritis of left knee: Code(s): M17.12 - Unilateral primary osteoarthritis, left knee Category: Medical (2) Osteoarthritis of right knee: Code(s): M17.11 - Unilateral primary osteoarthritis, right knee Category: Medical Plan Mr. Vasques presents with progressively worsening bilateral knee pains due to osteoarthritis. I had a lengthy discussion with the patient regarding the treatment options. He wishes to hold off on surgery if at all possible. I agree with this plan. I will see if his insurance company will cover a viscosupplementation injection, such as Durolane, for both of his knees. I will see him back once the injections are approved. Feel free to call me at any time should questions regarding his orthopedic management arise. Thank you very much for asking me to see this very friendly gentleman. I spent 21 minutes in reviewing the patient's records and imaging studies, seeing the patient and documenting in the medical record. Orders: Orders XR Knee Lacho 3V Today M25.561 - Pain in right knee, M25.562 - Pain in left knee Coding Level of Care Code New Pt Level 3 (18425) Complex EM visit Add On G2211 Diagnoses Osteoarthritis of left knee M17.12 Osteoarthritis of right knee M17.11
== END 2024-12-28 08:12 | disposition home or self-care (01) ==
LOC: HO.HOS 07:41
PROVIDERS: PCP Internal Medicine; Visit Provider Orthopaedic Surgery
DX: M17.0 Bilateral primary osteoarthritis of knee (principal)
CPT/HCPCS: 99203; G2211

== ENCOUNTER → 2024-12-28 07:45 | Outpatient (BNV) | payer MEDICARE, SELFPAY | PROVIDERS: Visit Provider Radiology Diagnostic Radiology | DX: M17.0 Bilateral primary osteoarthritis of knee (principal) | CPT/HCPCS: 73562 ==

== ENCOUNTER 2024-12-28 08:31 | Outpatient (REF) | payer MEDICARE, SELFPAY ==
--- NOTE | ~2024-12-28 | XR_ITS ---
EXAMINATION: XR KNEE 3 VIEWS BILATERAL HISTORY: Bilateral knee pain COMPARISON: There are no prior studies available for comparison. FINDINGS: Six views of the bilateral knees are submitted. Osseous mineralization is normal. There is no fracture or dislocation. There is severe osteoarthritis of the medial compartments of both knees with joint space narrowing and osteophyte formation. There is mild to moderate osteoarthritis of the lateral and patellofemoral compartments bilaterally. There are vascular calcifications. There is no joint effusion. XR/XR Knee Lacho 3V IMPRESSION: Osteoarthritis of the bilateral knees as described. Electronically signed by: Kevin Alvarez MD 12/28/2024 07:58 AM EST
--- OUTSIDE RECORDS SUMMARY | 2024-12-29 09:05 | XMS_ITS | Encounter Summary ---
Author Organization [facility] Address [address] [place] [address] Phone Care Team Providers Care Barn Hand Name Role Phone Unknown, Unknown Primary Care Provider Tawny Ayon MD Primary Care Provider [phone] Encounter Details Date Type Department Care Team (Latest Contact Info) Description 04/17/2021 Transcribe Orders Virtual Department [address] [place] [address] Soraya Almodovar TOURIST ADVISER [address] [place] [address] [phone] [email or web address] Radiculopathy, thoracic region (Primary Dx) Social History [...] unspecified documented in this encounter Care Teams Barn Hand Relationship Specialty Start Date End Date Unknown, Unknown, MD PCP - General 04/24/21 04/12/22 Tawny Rodas MD [facility] [place] [address] PCP - General Internal Medicine 04/13/22 documented as of this encounter Additional Source Comments The information contained in this document represents components of the legal health record. It is not the complete legal health record.[facility]
--- OUTSIDE RECORDS SUMMARY | 2024-12-29 09:05 | XMS_ITS | Clinical Summary ---
Author Organization [facility] Address [address] [place] [address] Phone Care Team Providers Care Albacore Fishing Boat Crewman Name Role Phone Tawny Rodas MD Primary Care Provider [phone] Medications cabergoline (DOSTINEX) 0.5 mg tablet Take [...] topic Medical Devices Not on file Insurance [facility] MEDICARE HMO [place] [address] [place] [address] MEDICARE HMO [place] [address] [place] [address] MED[address] HMO [address] [place] [address] [place] [address] MED[address] [place] [address] [place] [address] MEDICARE HMO BLUE REPLACEMENT Care Teams [employer] Fishing Boat Crewman Relationship Specialty Start Date End Date Tawny Rodas MD [facility] [place] [address] PCP - General Internal Medicine 04/13/22 Additional Source Comments The information contained in this document represents components of the legal health record. It is not the complete legal health record.[facility]
== END 2024-12-28 08:32 | disposition home or self-care (01) ==
LOC: HO.HOSX 08:31
PROVIDERS: Visit Provider Orthopaedic Surgery
DX: M17.0 Bilateral primary osteoarthritis of knee (principal); Z79.02 Long term (current) use of antithrombotics/antiplatelets; Z79.899 Other long term (current) drug therapy
CPT/HCPCS: 73562; 99202

== ENCOUNTER 2025-01-31 13:14 | Outpatient (AMB) | payer MEDICARE, SELFPAY ==
--- NOTE | 2025-01-31 13:36 | MHC.OFFVIS ---
Intake Visit Reasons: bilateral knees cortisone injection Intake Note: Sergio is a 69 year old male who presents with complaints of bilateral knee pains. He describes his pains as sharp in nature. He has tried Tylenol and ibuprofen which gave him mild relief. He wishes to hold off on surgery if at all possible. Allergies gabapentin Adverse Reaction (Intermediate, Verified 12/28/24 08:02) Agitated Medication List - Last Reconciled 01/31/25 by Easton Kirby MD cabergoline 0.25 mg (1/2 x 0.5 mg) PO 2XW ibuprofen 800 mg PO BID lancets Test blood sugars 2-3 times per day metformin 850 mg PO BID olmesartan 5 mg PO DAILY OneTouch Verio test strips (blood sugar diagnostic) Test blood sugar once a day NS pravastatin 40 mg PO DAILY PFSH Medical History (Updated 12/28/24 @ 08:17 by Easton Kirby MD) Colon cancer screening Hx of cataract Hyperlipidemia Prolactinoma DM type 2 (diabetes mellitus, type 2) Pathologic high serum prolactin Anxiety Tobacco dependence Back pain Overweight Annual physical exam Hyperglycemia Surgical History Hx of tooth extraction Family History Father Diabetes Hypertension Mother Hypertension Breast cancer Maternal Uncle Lung cancer Sister Mental health disorder Diabetes Social History Housing: House Alcohol intake: current Alcohol intake frequency: a few times a week Alcohol type: beer Patient Tobacco Use Status: Current everyday Tobacco user Tobacco use type: Cigarette Cigarettes Per Day: 20 e-Cigarette/Vaping Use: Never Used service: No Current occupational status: employed Cognitive needs: No Hearing needs: No Vision needs: No Physical Exam Extrem Other: Bilateral knee examination shows minimal effusions, palpable crepitus with range of motion, pain with range of motion, no instability Office Procedures AMB Joint Injection/Aspiration Joint Injection/Aspiration Primary Site: Right Knee Prep: site was prepped using aseptic technique Injected: 40 mg of, DepoMedrol, with 3 mL of and 1% plain Lidocaine Procedure: The patient tolerated the procedure well Coding 47137 - Large joint Procedure code (CPT) selection complete AMB Joint Injection/Aspiration Joint Injection/Aspiration Primary Site: Left Knee Prep: site was prepped using aseptic technique Injected: 40 mg of, DepoMedrol, with 3 mL of and 1% plain Lidocaine Procedure: The patient tolerated the procedure well Coding - Large joint Procedure code (CPT) selection complete Results Reviewed Results Reviewed: X-rays of the patient's bilateral knees taken previously show joint space narrowing, subchondral sclerosis, no acute bony abnormalities Assessment & Plan Assessment & Plan (1) Osteoarthritis of left knee: Code(s): M17.12 - Unilateral primary osteoarthritis, left knee Category: Medical (2) Osteoarthritis of right knee: Code(s): M17.11 - Unilateral primary osteoarthritis, right knee Category: Medical Plan Mr. Vasques presents with bilateral knee pains due to osteoarthritis. The risks and benefits of bilateral knee cortisone injections were discussed at length with the patient. The patient wished to proceed. Tolerated the injections well. He will continue with his home exercise program. He will contact me prior to his follow-up appointment in 2-3 months should any questions or concerns arise. Feel free to call me at any time should questions regarding his orthopedic management arise. I spent 22 minutes in reviewing the patient's records and imaging studies, seeing the patient and documenting in the medical record. Orders: Orders AMB Joint Injection/Aspiration Today M17.12 - Unilateral primary osteoarthritis, left knee AMB Joint Injection/Aspiration Today M17.11 - Unilateral primary osteoarthritis, right knee Coding Level of Care Code Est Pt Level 3 (15326) Add On Problem Visit Only Diagnoses Osteoarthritis of left knee M17.12 Osteoarthritis of right knee M17.11 CPT Codes Coding - Large joint: 11883 - Large joint ([id number]) Coding - 80797 Large joint: 32329 - Large joint ([id number])
--- OUTSIDE RECORDS SUMMARY | 2025-01-31 20:45 | XMS_ITS | Encounter Summary ---
Author Organization [facility] Address [address] [place] [address] Phone Care Team Providers Care Airport Operations Crew Member Name Role Phone Unknown, Unknown Primary Care Provider Tawny Ayon MD Primary Care Provider [phone] Encounter Details Date Type Department Care Team (Latest Contact Info) Description 04/17/2021 Transcribe Orders Virtual Department [address] [place] [address] Soraya Almodovar ORNAMENTAL METAL WORKER HELPER [address] [place] [phone] [email or web address] Radiculopathy, thoracic region (Primary Dx) Social History [...] unspecified documented in this encounter Care Teams Airport Operations Crew Member Relationship Specialty Start Date End Date Unknown, Unknown, MD PCP - General 04/24/21 04/12/22 Tawny Rodas MD [address] [place] [phone] PCP - General Internal Medicine 04/13/22 documented as of this encounter Additional Source Comments The information contained in this document represents components of the legal health record. It is not the complete legal health record.[facility]
--- OUTSIDE RECORDS SUMMARY | 2025-01-31 20:45 | XMS_ITS | Clinical Summary ---
Author Organization [facility] Address [address] [place] [address] Phone Care Team Providers Care Industrial Hygiene Technician Name Role Phone Tawny Rodas MD Primary Care Provider [phone] Medications cabergoline (DOSTINEX) 0.5 mg tablet Take [...] topic Medical Devices Not on file Insurance [facility] MEDICARE HMO BLUE [place]PLACEMENT [place] [address] MEDICARE HMO BLUE REPLACEMENT [address] [place] [address] MEDICARE HMO [address] [place] [address] MEDICARE HMO [address] [place] [place] [address] MEDICARE HMO BLUE REPLACEMENT Care Teams Industrial Hygiene Technician Relationship Specialty Start Date End Date Tawny Rdoas MD [facility] [place] [address] PCP - General Internal Medicine 04/13/22 Additional Source Comments The information contained in this document represents components of the legal health record. It is not the complete legal health record.[facility]
== END 2025-01-31 14:09 | disposition home or self-care (01) ==
LOC: HO.HOS 13:15
PROVIDERS: Visit Provider Orthopaedic Surgery
DX: M17.0 Bilateral primary osteoarthritis of knee (principal)
CPT/HCPCS: 20610; 99213

== ENCOUNTER → 2025-01-31 13:14 | Outpatient (BNVA) | payer MEDICARE, SELFPAY | PROVIDERS: Visit Provider Orthopaedic Surgery | DX: M17.0 Bilateral primary osteoarthritis of knee (principal) | CPT/HCPCS: 20610; 99212; J1010; J2003 ==